=== PATIENT | male | born 1975 | race Caucasian/White ===

== ENCOUNTER 2020-10-16 17:06 | Emergency (ER) | payer SELFPAY ==
[2020-10-16 17:07] VITALS: BP 153/109; PULSE 55; RESP 22; TEMP 36.5; O2SAT 100; BMI 30.4
--- NOTE | 2020-10-16 17:19 | XRR_ITS ---
PROCEDURE INFORMATION: Exam: XR Chest Exam date and time: 10/16/2020 5:19 PM Age: 45 years old Clinical indication: Pain; Chest pressure; Additional info: Chest pain TECHNIQUE: Imaging protocol: XR of the chest. Views: 1 view. COMPARISON: CR Chest 1 [place] [id number] 02/12/2018 10:37 AM FINDINGS: Lungs: Low lung volumes. No consolidation. Normal pulmonary vasculature. Pleural spaces: Unremarkable. No pleural effusion. No pneumothorax. Heart/Mediastinum: Unremarkable. No cardiomegaly. Bones/joints: Unremarkable. XR/XR chest 1V portable [id number] IMPRESSION: No acute radiographic findings.
--- NOTE | 2020-10-16 17:22 | ECG_ITS ---
[facility] Test Date: 2020-10-16 Pat Name: Gideon Lion Department: Room: Gender: Male Director Quality Assurance: : 1975 Requested By: German Osborne Order Number: [id number] Dulce MD: Lupe Mueller M.D. Measurements Intervals [place] Rate: 62 P: 63 AL: 136 QRS: 3 QRSD: 76 T: 33 QT: 392 QTc: 399 Interpretive Statements SINUS RHYTHM Compared to ECG 02/12/2018 10:31:10 Atrial fibrillation no longer present T-wave abnormality no longer present Electronically Signed On 10-17-2020 21:06:37 CDT by Lupe Mueller M.D. [id number] f
--- NOTE | 2020-10-16 17:23 | W.ED.CHESTPA ---
Documented by User: German Osborne MD 10/16/20 17:58 HPI - Chest Pain General: Chief Complaint: Chest Pain Stated Complaint: CHEST PAIN Time Seen by Provider: 10/16/20 17:19 History of Present Illness: HPI narrative: This patient is a 45-year-old male who presents to the emergency department with complaint of chest pain and shortness of breath. Patient states has been going on for about 24 hours. Patient states several years ago he had a mild heart attack and was started on some medications. But did not get any stents. Patient is closely followed by Dr. Caballero cardiology. Patient states has been noncompliant with medications since he lost his insurance. Will do medical evaluation treat as needed complaint: chest heaviness Pertinent past history: coronary artery disease Timing of current episode: constant Prior episodes: Yes Onset: during rest Pain location: substernal Pain radiation: none Severity: moderate Associated symptoms: Reports dyspnea; Deny abdominal pain, fever(s), nausea, palpitations or vomiting Review of Systems General: Reports: 10 or more systems reviewed and unremarkable except in HPI and below Const: Denies: fever(s), chills, body aches or fatigue Eyes: Denies: change in vision or blurry vision ENMT: Denies: throat pain, hoarseness or mouth pain Card: Reports: chest pain; Denies: palpitations, irregular heart rhythm, edema, swelling of feet/ankles or lightheadedness Resp: Reports: dyspnea; Denies: productive cough, non-productive cough, wheezing or pain on inspiration GI: Denies: abdominal pain, nausea or vomiting : Denies: flank pain, dysuria, urinary frequency, urinary urgency or urinary hesitancy Musc: Denies: neck pain, back pain, extremity pain, extremity swelling, joint pain, joint swelling, joint redness, joint warmth or limited range of motion Skin/Breast: Denies: rash, pruritus, erythema or skin tenderness Neuro: Denies: headache(s), numbness in extremities or weakness in extremities Psych: Denies: anxiety or depression Physical Exam Const: COMMON NORMALS: no acute distress, average body habitus, patient oriented x3, no limitations, healthy appearing, alert and well nourished HENMT: COMMON NORMALS: normocephalic, atraumatic, hearing grossly normal bilaterally, external ears normal, EAC's normal, TM's normal bilaterally, Normal external nose present, Normal nasal mucous membranes and turbinates present, moist oral mucous membranes, oropharynx normal, dentition normal and gingiva normal HEAD & SCALP: normocephalic and atraumatic NOSE: Normal external nose present and Normal nasal mucous membranes and turbinates present EXTERNAL EAR: Yes external ears normal EXTERNAL AUDITORY CANAL: EAC's normal TYMPANIC MEMBRANE: TM's normal bilaterally Neck/C-Spine: COMMON NORMALS: full ROM, no lymphadenopathy, supple, no meningeal signs, no JVD, Thyroid normal and No carotid bruits THYROID: Thyroid normal Chest: COMMONS NORMALS: normal inspection of the chest, normal palpation of entire chest wall, normal inspection of the breasts and normal palpation of the breasts Breast/axilla inspection: Yes normal inspection of the breasts BREAST/AXILLA PALPATION: Yes normal palpation of the breasts Resp: COMMON NORMALS: normal respiratory effort, No retractions, No use of accessory muscles, clear to auscultation bilaterally and percussion normal AUSCULTATION: clear to auscultation bilaterally PERCUSSION: percussion normal Cardio: COMMON NORMALS: no JVD, regular rate, regular rhythm, S1 normal heart sound present, S2 normal heart sound present, No gallops present (Cardio), No clicks present (Cardio), No murmurs present (Cardio), No rub (Cardio) and Peripheral pulses 2+ throughout RATE: regular rate RHYTHM: regular rhythm HEART SOUNDS: S1 normal heart sound present and S2 normal heart sound present PERIPHERAL PULSES: Peripheral pulses 2+ throughout GI: COMMON NORMALS: Normal to inspection, nondistended, normoactive bowel sounds present, Soft to palpation, non-tender, No hepatosplenomegaly present, no masses and no bruits PALPATION: Yes Soft to palpation and Yes No hepatosplenomegaly present : COMMON NORMALS: Yes no CVA tenderness BLADDER/KIDNEY EXAM: Yes no CVA tenderness Back/Pelvis: COMMON NORMALS: no CVA tenderness, thoracic and lumbar spine normal to inspection, no thoracic nor lumbar tenderness, thoraco-lumbar ROM normal and straight leg raise negative bilaterally Extremity: COMMON NORMALS: normal to inspection, full ROM, capillary refill normal, no joint enlargement, no clubbing, cyanosis or edema, no calf tenderness and no pedal edema Neuro: COMMON NORMALS: patient oriented x3 SENSORIUM/ORIENTATION: Yes alert MENINGEAL SIGNS: Yes no meningeal signs Course Consultations: Consultation #1: Care transferred to Dr. Murguia for shift change Vital Signs: Vital signs: Vital Signs Temperature 97.7 F 10/16/20 17:07 Pulse Rate 74 10/16/20 20:47 Respiratory Rate 21 H 10/16/20 20:47 Blood Pressure 160/93 10/16/20 20:47 Pulse Oximetry 99 10/16/20 20:47 MDM - Chest Pain Lab Data: Labs: Lab Results 10/16/20 10/16/20 10/16/20 Range/Units 17:35 17:35 17:35 WBC 13.7 H (4.0-10.0) 10^3/ uL RBC 5.21 (4.1-5.3) 10^6/u L Hgb 15.5 (11.7-16.6) g/dL Hct 47.9 (42.0-52.0) % MCV 91.9 (80-94) fL MCH 29.8 (28.0-34.0) pg MCHC 32.4 (30.0-36.0) g/dL RDW 13.0 (12.1-15.1) % Plt Count 379 (130-400) 10^3/c mm MPV 9.3 (7.4-10.4) fL Neut % (Auto) 77.0 % Lymph % (Auto) 17.7 % Harrison % (Auto) 3.9 % Eos % (Auto) 0.8 % Baso % (Auto) 0.3 % Neut # (Auto) 10.56 H (1.8-7.7) 10^3/u L Lymph # (Auto) 2.4 (0.8-4.8) 10^3/u L Harrison # (Auto) 0.5 (0.2-0.9) 10^3/u L Eos # (Auto) 0.1 (0.0-0.8) 10^3/u L Baso # (Auto) 0.0 (0.0-0.1) 10^3/u L Nucleated RBC % (a uto) 0 % Nucleated RBCs # 0.0 /100WBC PT 13.20 (12.1-14.9) SECO NDS INR 0.97 (0.8-1.2) APTT 24.6 (23.9-36.7) SECO NDS D-Dimer <= 0.27 (0-0.59) ug/mIFE U Sodium 146 H (136-145) mmol/L Potassium 3.6 (3.5-5.1) mmol/L Chloride 108 H (98-107) mmol/L Carbon Dioxide 17 L (22-29) mmol/L Anion Gap 24.6 H (5-19) BUN 11 (6-20) mg/dL Creatinine 0.9 (0.7-1.2) mg/dL GFR Calculation 91.3 (90-130) mL/min Glucose 151 H (65-115) mg/dL Calculated Osmolal ity 304 H (285-295) mOsm/k g Calcium 9.1 (8.5-10.5) mg/dL Total Bilirubin 0.9 (0.15-1.2) mg/dL AST 15 (0-40) U/L ALT 16 (0-41) U/L Alkaline Phosphata se 63 (40-130) IU/L Troponin T Baselin e (0-15) ng/L Troponin T 120 Min [place] (0-15) ng/L Delta Troponin T (0-10) ABS# NT-Pro-B Natriuret Pep 74 (0-125) pg/mL Total Protein 6.9 (6.6-8.7) g/dL Albumin 4.4 (3.5-5.2) g/dL Globulin 2.5 (1.3-4.6) g/dL Urine Color (Yellow) Urine Appearance (CLEAR) Urine pH (5-7) Ur Specific Gravit y (1.005-1.030) Urine Protein (Negative) Urine Glucose (UA) (Normal) Urine Ketones (Negative) Urine Blood (Negative) Urine Nitrate (Negative) Urine Bilirubin (Negative) Urine Urobilinogen (Negative) mg/dL Ur Leukocyte [place] ase (Negative) Urine RBC (0-2) /hpf Urine WBC (0-5) /hpf Ur Squamous Epith Cells (0-5) /hpf Amorphous Sediment Urine Bacteria (NONE) /hpf Hyaline Casts /lpf Urine Mucus /hpf Urine Opiates Scre en (Negative) ng/mL Ur Barbiturates Sc reen (Negative) ng/mL Ur Phencyclidine S crn (Negative) ng/mL Ur Amphetamines Sc reen (Negative) ng/mL U Benzodiazepines Scrn (Negative) ng/mL Urine Cocaine Scre en (Negative) ng/mL U Marijuana (THC) Screen (Negative) ng/mL 10/16/20 10/16/20 10/16/20 Range/Units 17:35 18:19 18:19 WBC (4.0-10.0) 10^3/ uL RBC (4.1-5.3) 10^6/u L Hgb (11.7-16.6) g/dL Hct (42.0-52.0) % MCV (80-94) fL MCH (28.0-34.0) pg MCHC (30.0-36.0) g/dL RDW (12.1-15.1) % Plt Count (130-400) 10^3/c mm MPV (7.4-10.4) fL Neut % (Auto) % Lymph % (Auto) % Harrison % (Auto) % Eos % (Auto) % Baso % (Auto) % Neut # (Auto) (1.8-7.7) 10^3/u L Lymph # (Auto) (0.8-4.8) 10^3/u L Harrison # (Auto) (0.2-0.9) 10^3/u L Eos # (Auto) (0.0-0.8) 10^3/u L Baso # (Auto) (0.0-0.1) 10^3/u L Nucleated RBC % (a uto) % Nucleated RBCs # /100WBC PT (12.1-14.9) SECO NDS INR (0.8-1.2) APTT (23.9-36.7) SECO NDS D-Dimer (0-0.59) ug/mIFE U Sodium (136-145) mmol/L Potassium (3.5-5.1) mmol/L Chloride (98-107) mmol/L Carbon Dioxide (22-29) mmol/L Anion Gap (5-19) BUN (6-20) mg/dL Creatinine (0.7-1.2) mg/dL GFR Calculation (90-130) mL/min Glucose (65-115) mg/dL Calculated Osmolal ity (285-295) mOsm/k g Calcium (8.5-10.5) mg/dL Total Bilirubin (0.15-1.2) mg/dL AST (0-40) U/L ALT (0-41) U/L Alkaline Phosphata se (40-130) IU/L Troponin T Baselin e 10 (0-15) ng/L Troponin T 120 Min [place] (0-15) ng/L Delta Troponin T (0-10) ABS# NT-Pro-B Natriuret Pep (0-125) pg/mL Total Protein (6.6-8.7) g/dL Albumin (3.5-5.2) g/dL Globulin (1.3-4.6) g/dL Urine Color Yellow (Yellow) Urine Appearance Sl hazy (CLEAR) Urine pH 7 (5-7) Ur Specific Gravit y 1.010 (1.005-1.030) Urine Protein Neg (Negative) Urine Glucose (UA) Norm (Normal) Urine Ketones 1+ H (Negative) Urine Blood 3+ H (Negative) Urine Nitrate Negative (Negative) Urine Bilirubin Neg (Negative) Urine Urobilinogen Norm (Negative) mg/dL Ur Leukocyte [place]urel ase Negative (Negative) Urine RBC 15-25 H (0-2) /hpf Urine WBC None (0-5) /hpf Ur Squamous Epith Cells Rare (0-5) /hpf Amorphous Sediment Not Reportable Urine Bacteria Trace (NONE) /hpf Hyaline Casts 5-10 H /lpf Urine Mucus 1+ /hpf Urine Opiates Scre en Negative (Negative) ng/mL Ur Barbiturates Sc reen Negative (Negative) ng/mL Ur Phencyclidine S crn Negative (Negative) ng/mL Ur Amphetamines Sc reen Positive H (Negative) ng/mL U Benzodiazepines Scrn Negative (Negative) ng/mL Urine Cocaine Scre en Negative (Negative) ng/mL U Marijuana (THC) Screen Positive H (Negative) ng/mL 10/16/20 Range/Units 20:03 WBC (4.0-10.0) 10^3/ uL RBC (4.1-5.3) 10^6/u L Hgb (11.7-16.6) g/dL Hct (42.0-52.0) % MCV (80-94) fL MCH (28.0-34.0) pg MCHC (30.0-36.0) g/dL RDW (12.1-15.1) % Plt Count (130-400) 10^3/c mm MPV (7.4-10.4) fL Neut % (Auto) % Lymph % (Auto) % Harrison % (Auto) % Eos % (Auto) % Baso % (Auto) % Neut # (Auto) (1.8-7.7) 10^3/u L Lymph # (Auto) (0.8-4.8) 10^3/u L Harrison # (Auto) (0.2-0.9) 10^3/u L Eos # (Auto) (0.0-0.8) 10^3/u L Baso # (Auto) (0.0-0.1) 10^3/u L Nucleated RBC % (a uto) % Nucleated RBCs # /100WBC PT (12.1-14.9) SECO NDS INR (0.8-1.2) APTT (23.9-36.7) SECO NDS D-Dimer (0-0.59) ug/mIFE U Sodium (136-145) mmol/L Potassium (3.5-5.1) mmol/L Chloride (98-107) mmol/L Carbon Dioxide (22-29) mmol/L Anion Gap (5-19) BUN (6-20) mg/dL Creatinine (0.7-1.2) mg/dL GFR Calculation (90-130) mL/min Glucose (65-115) mg/dL Calculated Osmolal ity (285-295) mOsm/k g Calcium (8.5-10.5) mg/dL Total Bilirubin (0.15-1.2) mg/dL AST (0-40) U/L ALT (0-41) U/L Alkaline Phosphata se (40-130) IU/L Troponin T Baselin e (0-15) ng/L Troponin T 120 Min [place] 37.28 H (0-15) ng/L Delta Troponin T 27.28 H* (0-10) ABS# NT-Pro-B Natriuret Pep (0-125) pg/mL Total Protein (6.6-8.7) g/dL Albumin (3.5-5.2) g/dL Globulin (1.3-4.6) g/dL Urine Color (Yellow) Urine Appearance (CLEAR) Urine pH (5-7) Ur Specific Gravit y (1.005-1.030) Urine Protein (Negative) Urine Glucose (UA) (Normal) Urine Ketones (Negative) Urine Blood (Negative) Urine Nitrate (Negative) Urine Bilirubin (Negative) Urine Urobilinogen (Negative) mg/dL Ur Leukocyte [place] ase (Negative) Urine RBC (0-2) /hpf Urine WBC (0-5) /hpf Ur Squamous Epith Cells (0-5) /hpf Amorphous Sediment Urine Bacteria (NONE) /hpf Hyaline Casts /lpf Urine Mucus /hpf Urine Opiates Scre en (Negative) ng/mL Ur Barbiturates Sc reen (Negative) ng/mL Ur Phencyclidine S crn (Negative) ng/mL Ur Amphetamines Sc reen (Negative) ng/mL U Benzodiazepines Scrn (Negative) ng/mL Urine Cocaine Scre en (Negative) ng/mL U Marijuana (THC) Screen (Negative) ng/mL EKG Data^: EKG 1: Attestation: I personally reviewed and interpreted this EKG as follows: EKG interpretation date: 10/16/20 EKG interpretation time: 17:15 Prior EKG tracings: not available for review Interpretation: Sinus rhythm heart rate 62 normal EKG Discharge Plan Discharge Patient Disposition: Left Against Medical Advice Clinical Impression: Chest pain Qualifiers: Chest pain type: unspecified Qualified Code(s): R07.9 - Chest pain, unspecified Coding Level of Care Code ED Microfiche Duplicator for Chg Fwd Exam Comprehensive Documented by User: Marc Murguia DO 10/17/20 06:35 HPI - Chest Pain General: Chief Complaint: Chest Pain Stated Complaint: CHEST PAIN Time Seen by Provider: 10/16/20 17:19 Course Vital Signs: Vital signs: Vital Signs Temperature 97.7 F 10/16/20 17:07 Pulse Rate 74 10/16/20 20:47 Respiratory Rate 21 H 10/16/20 20:47 Blood Pressure 160/93 10/16/20 20:47 Pulse Oximetry 99 10/16/20 20:47 MDM - Chest Pain MDM Narrative: Medical decision making narrative: 45-year-old male evidently with a history of coronary disease but without procedural intervention, presents with chest discomfort. He was checked out to me by Dr. Osborne at shift change. This patient has an EKG that did not show any acute ST changes. His first troponin was essentially negative, but a second troponin cecilia significantly with a significant delta. His bicarbonate level is 17. His urine drug screen is positive for amphetamines. His chest x-ray was negative. I suspect a delta troponin could be related to amphetamine use, but still, given the patient's history, observation was warranted. However, the patient eloped from the emergency department prior to completion of his care. The patient evidently had an IV in his arm at the time of elopement. Because of this, security called at [facility] deputies who later caught up with the patient. They encouraged the patient to come back, given his elevation in troponin, and possible non-STEMI status. The patient said that he would think about coming back. Lab Data: Labs: Lab Results 10/16/20 10/16/20 10/16/20 Range/Units 17:35 17:35 17:35 WBC 13.7 H (4.0-10.0) 10^3/ uL RBC 5.21 (4.1-5.3) 10^6/u L Hgb 15.5 (11.7-16.6) g/dL Hct 47.9 (42.0-52.0) % MCV 91.9 (80-94) fL MCH 29.8 (28.0-34.0) pg MCHC 32.4 (30.0-36.0) g/dL RDW 13.0 (12.1-15.1) % Plt Count 379 (130-400) 10^3/c mm MPV 9.3 (7.4-10.4) fL Neut % (Auto) 77.0 % Lymph % (Auto) 17.7 % [place] % (Auto) 3.9 % Eos % (Auto) 0.8 % Baso % (Auto) 0.3 % Neut # (Auto) 10.56 H (1.8-7.7) 10^3/u L Lymph # (Auto) 2.4 (0.8-4.8) 10^3/u L Harrison # (Auto) 0.5 (0.2-0.9) 10^3/u L Eos # (Auto) 0.1 (0.0-0.8) 10^3/u L Baso # (Auto) 0.0 (0.0-0.1) 10^3/u L Nucleated RBC % (a uto) 0 % Nucleated RBCs # 0.0 /100WBC PT 13.20 (12.1-14.9) SECO NDS INR 0.97 (0.8-1.2) APTT 24.6 (23.9-36.7) SECO NDS D-Dimer <= 0.27 (0-0.59) ug/mIFE U Sodium 146 H (136-145) mmol/L Potassium 3.6 (3.5-5.1) mmol/L Chloride 108 H (98-107) mmol/L Carbon Dioxide 17 L (22-29) mmol/L Anion Gap 24.6 H (5-19) BUN 11 (6-20) mg/dL Creatinine 0.9 (0.7-1.2) mg/dL GFR Calculation 91.3 (90-130) mL/min Glucose 151 H (65-115) mg/dL Calculated Osmolal ity 304 H (285-295) mOsm/k g Calcium 9.1 (8.5-10.5) mg/dL Total Bilirubin 0.9 (0.15-1.2) mg/dL AST 15 (0-40) U/L ALT 16 (0-41) U/L Alkaline Phosphata se 63 (40-130) IU/L Troponin T Baselin e (0-15) ng/L Troponin T 120 Min [place] (0-15) ng/L Delta Troponin T (0-10) ABS# NT-Pro-B Natriuret Pep 74 (0-125) pg/mL Total Protein 6.9 (6.6-8.7) g/dL Albumin 4.4 (3.5-5.2) g/dL Globulin 2.5 (1.3-4.6) g/dL Urine Color (Yellow) Urine Appearance (CLEAR) Urine pH (5-7) Ur Specific Gravit y (1.005-1.030) Urine Protein (Negative) Urine Glucose (UA) (Normal) Urine Ketones (Negative) Urine Blood (Negative) Urine Nitrate (Negative) Urine Bilirubin (Negative) Urine Urobilinogen (Negative) mg/dL Ur Leukocyte [place]urel ase (Negative) Urine RBC (0-2) /hpf Urine WBC (0-5) /hpf Ur Squamous Epith Cells (0-5) /hpf Amorphous Sediment Urine Bacteria (NONE) /hpf Hyaline Casts /lpf Urine Mucus /hpf Urine Opiates Scre en (Negative) ng/mL Ur Barbiturates Sc reen (Negative) ng/mL Ur Phencyclidine S crn (Negative) ng/mL Ur Amphetamines Sc reen (Negative) ng/mL U Benzodiazepines Scrn (Negative) ng/mL Urine Cocaine Scre en (Negative) ng/mL U Marijuana (THC) Screen (Negative) ng/mL 10/16/20 10/16/20 10/16/20 Range/Units 17:35 18:19 18:19 WBC (4.0-10.0) 10^3/ uL RBC (4.1-5.3) 10^6/u L Hgb (11.7-16.6) g/dL Hct (42.0-52.0) % MCV (80-94) fL MCH (28.0-34.0) pg MCHC (30.0-36.0) g/dL RDW (12.1-15.1) % Plt Count (130-400) 10^3/c mm MPV (7.4-10.4) fL Neut % (Auto) % Lymph % (Auto) % [place] % (Auto) % Eos % (Auto) % Baso % (Auto) % Neut # (Auto) (1.8-7.7) 10^3/u L Lymph # (Auto) (0.8-4.8) 10^3/u L [place] # (Auto) (0.2-0.9) 10^3/u L Eos # (Auto) (0.0-0.8) 10^3/u L Baso # (Auto) (0.0-0.1) 10^3/u L Nucleated RBC % (a uto) % Nucleated RBCs # /100WBC PT (12.1-14.9) SECO NDS INR (0.8-1.2) APTT (23.9-36.7) SECO NDS D-Dimer (0-0.59) ug/mIFE U Sodium (136-145) mmol/L Potassium (3.5-5.1) mmol/L Chloride (98-107) mmol/L Carbon Dioxide (22-29) mmol/L Anion Gap (5-19) BUN (6-20) mg/dL Creatinine (0.7-1.2) mg/dL GFR Calculation (90-130) mL/min Glucose (65-115) mg/dL Calculated Osmolal ity (285-295) mOsm/k g Calcium (8.5-10.5) mg/dL Total Bilirubin (0.15-1.2) mg/dL AST (0-40) U/L ALT (0-41) U/L Alkaline Phosphata se (40-130) IU/L Troponin T Baselin e 10 (0-15) ng/L Troponin T 120 Min [place] (0-15) ng/L Delta Troponin T (0-10) ABS# NT-Pro-B Natriuret Pep (0-125) pg/mL Total Protein (6.6-8.7) g/dL Albumin (3.5-5.2) g/dL Globulin (1.3-4.6) g/dL Urine Color Yellow (Yellow) Urine Appearance Sl hazy (CLEAR) Urine pH 7 (5-7) Ur Specific Gravit y 1.010 (1.005-1.030) Urine Protein Neg (Negative) Urine Glucose (UA) Norm (Normal) Urine Ketones 1+ H (Negative) Urine Blood 3+ H (Negative) Urine Nitrate Negative (Negative) Urine Bilirubin Neg (Negative) Urine Urobilinogen Norm (Negative) mg/dL Ur Leukocyte [place] a[place] Negative (Negative) Urine RBC 15-25 H (0-2) /hpf Urine WBC None (0-5) /hpf Ur Squamous Epith Cells Rare (0-5) /hpf Amorphous Sediment Not Reportable Urine Bacteria Trace (NONE) /hpf Hyaline Casts 5-10 H /lpf Urine Mucus 1+ /hpf Urine Opiates Scre en Negative (Negative) ng/mL Ur Barbiturates Sc reen Negative (Negative) ng/mL Ur Phencyclidine S crn Negative (Negative) ng/mL Ur Amphetamines Sc reen Positive H (Negative) ng/mL U Benzodiazepines Scrn Negative (Negative) ng/mL Urine Cocaine Scre en Negative (Negative) ng/mL U Marijuana (THC) Screen Positive H (Negative) ng/mL 10/16/20 Range/Units 20:03 WBC (4.0-10.0) 10^3/ uL RBC (4.1-5.3) 10^6/u L Hgb (11.7-16.6) g/dL Hct (42.0-52.0) % MCV (80-94) fL MCH (28.0-34.0) pg MCHC (30.0-36.0) g/dL RDW (12.1-15.1) % Plt Count (130-400) 10^3/c mm MPV (7.4-10.4) fL Neut % (Auto) % Lymph % (Auto) % Harrison % (Auto) % Eos % (Auto) % Baso % (Auto) % Neut # (Auto) (1.8-7.7) 10^3/u L Lymph # (Auto) (0.8-4.8) 10^3/u L Harrison # (Auto) (0.2-0.9) 10^3/u L Eos # (Auto) (0.0-0.8) 10^3/u L Baso # (Auto) (0.0-0.1) 10^3/u L Nucleated RBC % (a uto) % Nucleated RBCs # /100WBC PT (12.1-14.9) SECO NDS INR (0.8-1.2) APTT (23.9-36.7) SECO NDS D-Dimer (0-0.59) ug/mIFE U Sodium (136-145) mmol/L Potassium (3.5-5.1) mmol/L Chloride (98-107) mmol/L Carbon Dioxide (22-29) mmol/L Anion Gap (5-19) BUN (6-20) mg/dL Creatinine (0.7-1.2) mg/dL GFR Calculation (90-130) mL/min Glucose (65-115) mg/dL Calculated Osmolal ity (285-295) mOsm/k g Calcium (8.5-10.5) mg/dL Total Bilirubin (0.15-1.2) mg/dL AST (0-40) U/L ALT (0-41) U/L Alkaline Phosphata se (40-130) IU/L Troponin T Baselin e (0-15) ng/L Troponin T 120 Min [place] 37.28 H (0-15) ng/L Delta Troponin T 27.28 H* (0-10) ABS# NT-Pro-B Natriuret Pep (0-125) pg/mL Total Protein (6.6-8.7) g/dL Albumin (3.5-5.2) g/dL Globulin (1.3-4.6) g/dL Urine Color (Yellow) Urine Appearance (CLEAR) Urine pH (5-7) Ur Specific Gravit y (1.005-1.030) Urine Protein (Negative) Urine Glucose (UA) (Normal) Urine Ketones (Negative) Urine Blood (Negative) Urine Nitrate (Negative) Urine Bilirubin (Negative) Urine Urobilinogen (Negative) mg/dL Ur Leukocyte [place]urel ase (Negative) Urine RBC (0-2) /hpf Urine WBC (0-5) /hpf Ur Squamous Epith Cells (0-5) /hpf Amorphous Sediment Urine Bacteria (NONE) /hpf Hyaline Casts /lpf Urine Mucus /hpf Urine Opiates Scre en (Negative) ng/mL Ur Barbiturates Sc reen (Negative) ng/mL Ur Phencyclidine S crn (Negative) ng/mL Ur Amphetamines Sc reen (Negative) ng/mL U Benzodiazepines Scrn (Negative) ng/mL Urine Cocaine Scre en (Negative) ng/mL U Marijuana (THC) Screen (Negative) ng/mL Discharge Plan Discharge Patient Disposition: Left Against Medical Advice Clinical Impression: Chest pain Qualifiers: Chest pain type: unspecified Qualified Code(s): R07.9 - Chest pain, unspecified Coding Level of Care Code ED Microfiche Duplicator for [facility] Fwd Exam Comprehensive
[2020-10-16 17:26] VITALS: BP 112/92; PULSE 66; RESP 18; O2SAT 98
[2020-10-16] MEDS: nitroglycerin 0.4 mg sublingual Tablet SUBLINGUAL ×2 (17:28→17:34)
--- NOTE | 2020-10-16 17:29 | PC.NURSE ---
1729 X1 NITRO ADMINISTERED FOR CHEST PAIN OF 12/30 - BP 153/109 PULSE 62 02 98% ON RA --1734 BP 129/92 PULSE 98 0298% ROOM AIR - PT RATES CHEST PAIN OF 10/29 - SLIGHT DECREASE IN PAIN - 2ND NITRO ADMINISTERED - 1739 BP 109/85 PULSE 96 02 97% - WILL NOTIFY DOCTOR OF CONTINUED CHEST PAIN RATING AT 10/29
[2020-10-16 17:41] LABS: Basophils % 0.3 %; Eosinophils # 0.1 10^3/uL (0.0-0.8); Eosinophils % 0.8 %; Hematocrit 47.9 % (42.0-52.0); Hemoglobin 15.5 g/dL (11.7-16.6); Lymphocytes # 2.4 10^3/uL (0.8-4.8); Lymphocytes % 17.7 %; Mean Corpuscular HGB Conc 32.4 g/dL (30.0-36.0); Mean Corpuscular Hemoglobin 29.8 pg (28.0-34.0); Mean Corpuscular Volume 91.9 fL (80-94); Mean Platelet Volume 9.3 fL (7.4-10.4); Monocytes # 0.5 10^3/uL (0.2-0.9); Monocytes % 3.9 %; Neutrophils # 10.56 10^3/uL (1.8-7.7); Nucleated Red Blood Cells % 0 %; Platelet Count 379 10^3/cmm (130-400); Red Blood Count 5.21 10^6/uL (4.1-5.3); White Blood Count 13.7 10^3/uL (4.0-10.0)
[2020-10-16 17:53] LABS: INR 0.97 (0.8-1.2)
[2020-10-16 17:54] LABS: Partial Thromboplastin Time 24.6 SECONDS (23.9-36.7)
[2020-10-16 17:56] LABS: D Dimer <= 0.27 ug/mIFEU (0-0.59)
[2020-10-16 18:01] LABS: Troponin(5th) Baseline 10 ng/L (0-15)
[2020-10-16 18:10] LABS: Alanine Aminotransferase 16 U/L (0-41); Albumin Level 4.4 g/dL (3.5-5.2); Alkaline Phosphatase 63 IU/L (40-130); Anion Gap 24.6 (5-19); Aspartate Amino Transferase 15 U/L (0-40); Blood Urea Nitrogen 11 mg/dL (6-20); Calcium 9.1 mg/dL (8.5-10.5); Carbon Dioxide 17 mmol/L (22-29); Chloride 108 mmol/L (98-107); Globulin 2.5 g/dL (1.3-4.6); Glomerular Filtration Rate 91.3 mL/min (90-130); Glucose 151 mg/dL (65-115); NT Pro B Type Natriuretic Pept 74 pg/mL (0-125); Osmolality Calculated 304 mOsm/kg (285-295); Potassium 3.6 mmol/L (3.5-5.1); Sodium 146 mmol/L (136-145); Total Bilirubin 0.9 mg/dL (0.15-1.2); Total Protein 6.9 g/dL (6.6-8.7)
[2020-10-16 18:26] VITALS: BP 115/70; PULSE 62; RESP 18; O2SAT 96
[2020-10-16 18:36] VITALS: RESP 18
[2020-10-16] MEDS: ondansetron 2 mg/ML SDV 2 mL 4 MG IVP (18:36)
[2020-10-16] MEDS: morphine 4 mg/mL SDV 1 mL IVP ×2 (18:36→20:46)
[2020-10-16 18:38] LABS: Add Urine Microscopic? YES; Bilirubin Urine Neg (Negative); Blood Urine 3+ (Negative); Glucose Urine UA Norm (Normal); Ketones Urine 1+ (Negative); Leukocyte Esterase Urine Negative (Negative); Nitrate Urine Negative (Negative); Protein Urine Neg (Negative); Urine Appearance SL Hazy (CLEAR); Urine Color Yellow (Yellow); Urobilinogen Urine Norm (Negative); pH Urine 7 (5-7)
[2020-10-16 18:40] LABS: RBC Urine 15-25 /hpf (0-2)
[2020-10-16 18:41] LABS: Add Urine Culture? Yes; Bacteria Urine TRACE /hpf; Mucus Urine 1+ /hpf; Squamous Epithelial Cell Urine RARE /hpf (0-5)
[2020-10-16 18:44] LABS: Amphetamines Screen Urine Positive (Negative); Barbiturates Screen Urine Negative (Negative); Benzodiazepines Screen Urine Negative (Negative); Cocaine Screen Urine Negative (Negative); Opiate Screen Urine Negative (Negative); PCP Screen Urine Negative (Negative); THC Screen Urine Positive (Negative)
--- NOTE | 2020-10-16 19:22 | ECG_ITS ---
[facility] Test Date: 2020-10-16 Pat Name: Gideon Lion Department: Room: Gender: Male [employer]: : 1975 Requested By: German Osborne Order Number: [id number] Dulce MD: Lupe Mueller M.D. Measurements Intervals [place] Rate: 59 P: 21 MA: 146 QRS: -5 QRSD: 88 T: 31 QT: 403 QTc: 400 Interpretive Statements SINUS BRADYCARDIA Compared to ECG 10/16/2020 17:15:07 Sinus rhythm no longer present Electronically Signed On 10-19-2020 0:33:11 CDT by Lupe Mueller M.D. [email or web address] hospitalKSEsumma [id number]
[2020-10-16 19:57] VITALS: BP 126/56; PULSE 53; O2SAT 99
[2020-10-16 20:30] LABS: Troponin 5 2HR 37.28 ng/L (0-15)
[2020-10-16 20:38] LABS: Troponin 5 2HR Delta 27.28 ABS# (0-10)
[2020-10-16] MEDS: nitroglycerin 1 gm/inch oint Pkt 1 INCH TOPICAL (20:46)
[2020-10-16 20:47] VITALS: BP 160/93; PULSE 74; RESP 21; O2SAT 99
--- NOTE | 2020-10-16 21:31 | PC.NURSE ---
This nurse noticed upon walking back from [facility] to discharge another patient that patient and patient family member in ED room 14 were no longer in room. Security notified. residence life coordinator called all phone numbers available for patient, all #'s were disconnected. Security notified [facility] due to patient eloping from ER with IV still in place.
--- NOTE | 2020-10-16 21:43 | PC.NURSE ---
This nurse attempted to call all phone numbers available for patient in chart. All numbers disconnected. Head of security and [facility] department notified
--- NOTE | 2020-10-16 21:50 | PC.NURSE ---
security called law enforcement and were told to notify patient to come back into ED
== END 2020-10-16 21:59 | disposition left against medical advice (07) ==
PROVIDERS: Emergency Medicine; Emergency Provider Emergency Medicine
DX: R07.9 Chest pain, unspecified (principal); Z53.21 Procedure and treatment not carried out due to patient leaving prior to being seen by health care provider
CPT/HCPCS: 36415; 71045; 80053; 80306; 81001; 83880; 84484; 85025; 85378; 85610; 85730; 87086; 93005; 96374; 96375; 96376; 99284; 99291; J2270; J2405

== ENCOUNTER 2021-05-15 12:12 | Emergency (ER) | payer MEDICAID, SELFPAY ==
[2021-05-15 12:15] VITALS: BP 127/83; PULSE 121; RESP 24; TEMP 36.5; O2SAT 97; BMI 30.5
--- NOTE | 2021-05-15 12:17 | XR_ITS ---
WS: [id number] KNEE LEFT TECHNIQUE: 3 views of the left knee CLINICAL INFORMATION: chainsaw injury COMPARISON: None. FINDINGS: Normal anatomic alignment. No acute fractures. Normal patella. Small linear foreign body or calcification in the subcutaneous soft tissues anterior to the patella i s unchanged since 2010 XR/XR knee LT 3V* [id number] IMPRESSION: No acute left knee findings Kellgren-Wilbert Classification: grade 0 (none): definite absence of x-ray jose nges of osteoarthritis
[2021-05-15 12:21] VITALS: O2SAT 96
--- NOTE | 2021-05-15 12:23 | W.ED.TRAUMA ---
HPI - Trauma General: Chief Complaint: Trauma Stated Complaint: CUT LEG WITH CHAINSAW Time Seen by Provider: 05/15/21 12:17 History of Present Illness: HPI narrative: Patient presents with a laceration to the left kneecap area. Patient states limb kickback knocked change salt into his pants leg. Patient had a vasovagal reaction soon after the laceration occurred. Patient vomited and woke up in car that his dad put him in. Patient says he feels better now. Patient said left knee really hurts. Tetanus is up-to-date and was done 2 years ago complaint: injury Onset (ago): minute(s) Loss of Consciousness: yes (Vasovagal type reaction, last out after centimeters laceration) Location - Extremities: Left: knee Severity: mild Context: other (Chainsaw chain cut on) Associated symptoms: Reports no associated symptoms; Denies abdominal pain, chest pain, chills, fever(s), headache(s), nausea or vomiting Review of Systems Const: Denies: fever(s), chills or body aches Eyes: Denies: change in vision or blurry vision ENMT: Denies: throat pain or nasal congestion Card: Denies: chest pain or dyspnea on exertion Resp: Denies: dyspnea, productive cough or non-productive cough GI: Denies: abdominal pain, nausea or vomiting : Denies: difficulty urinating Musc: Reports: joint pain (Left knee); Denies: extremity pain Skin/Breast: Reports: other (Laceration left kneecap area from a chainsaw); Denies: rash Neuro: Denies: headache(s) Psych: Denies: anxiety or depression Jitendra/Lymph: Denies: easy bruising Physical Exam Const: COMMON NORMALS: no acute distress, average body habitus and patient oriented x3 HENMT: COMMON NORMALS: normocephalic HEAD & SCALP: normal to inspection and normocephalic FACE & SINUS: normal facial exam Eye: COMMON NORMALS: conjunctivae normal GENERAL EYE: appearance normal, both eyes and all related structures CONJUNCTIVA: Yes conjunctivae normal Neck/C-Spine: COMMON NORMALS: no JVD Chest: COMMONS NORMALS: normal inspection of the chest Resp: COMMON NORMALS: normal respiratory effort and clear to auscultation bilaterally AUSCULTATION: clear to auscultation bilaterally Cardio: COMMON NORMALS: no JVD, regular rate and regular rhythm RATE: regular rate RHYTHM: regular rhythm GI: COMMON NORMALS: Normal to inspection, nondistended, normoactive bowel sounds present Extremity: COMMON NORMALS: normal to inspection and full ROM Neuro: COMMON NORMALS: patient oriented x3 Skin: OTHER: 6 cm laceration without active bleeding but is oozing some to the left knee. Unable to determine whether bone is involved presently at this time. Procedures Laceration Laceration 1: Site: lower extremity Side (If applicable): left Size (cm): 8 Description: linear, irregular and clean Depth: simple, single layer Local Anesthetic: lidocaine 1% Amount of anesthesia used (mL): 5 Pre-repair: wound explored, irrigated extensively and deep structures intact Skin layer closed with: nylon Size (cm): 4-0 Number of sutures: 13 Technique: simple, interrupted Course Vital Signs: Vital signs: Vital Signs Temperature 97.7 F 05/15/21 12:15 Pulse Rate 121 H 05/15/21 12:15 Respiratory Rate 17 05/15/21 13:20 Blood Pressure 127/83 05/15/21 12:15 Pulse Oximetry 97 05/15/21 13:20 MDM - Trauma MDM Narrative: Medical decision making narrative: Patient sustained laceration to his left knee from a chainsaw accident earlier today. Patient had a vasovagal reaction after seen in his laceration. This occurred in the car. Patient presents fine but in pain and nervous from his laceration. Patient appeared stable. Laceration repaired without any difficulty. X-ray studies were negative. Patient was given antibiotic. Patient tolerated procedure well. Vital signs stable on discharge. Discharge Plan Discharge Patient Disposition: Home Clinical Impression: Laceration Condition: Stable Prescriptions: New cephalexin 500 mg capsule 500 mg PO Q8H 7 Days Qty: 21 RF: 0 Discharge Orders: Discharge ED (Routine); Ordered 05/15/21 Ordered By: Shahzad Albrecht Discharge Diet: Usual diet Discharge Activity: Resume usual activity Patient Instructions: Care For Your Stitches (ED), Laceration (ED) Activity Restrictions/Additional Instructions: Follow-up with medical provider as directed. Take medications as prescribed. Return to the ER or your medical provider if condition worsens. Please read and understand discharge instructions. If any questions ask please. Have sutures removed in 7 days. Apply Vaseline or petroleum jelly to wound to keep it moist. Keep dressing on wound. Change dressing daily. Coding Level of Care Code ED Health Promoter for Chg Fwd Exam Comprehensive
[2021-05-15] MEDS: morphine 4 mg/mL SDV 1 mL IVP (12:25)
[2021-05-15] MEDS: sodium chloride 0.9% 1,000 ML 100 ML IV (12:25)
[2021-05-15] MEDS: cefTRIAXone 1,000 MG in sodium chloride 0.9% (plus) 50 ML 100 MG IV (12:25)
[2021-05-15] MEDS: ondansetron 2 mg/ML SDV 2 mL 4 MG IVP (12:25)
--- NOTE | 2021-05-15 12:57 | PC.NURSE ---
room set up for sutures by this nurse by placing lidocaine at bedside, suture cart being moved in room, ed provider notified.
[2021-05-15 13:20] VITALS: RESP 17; O2SAT 97
[2021-05-15] MEDS: HYDROmorphone 1 mg/mL INJ 1 mL 0.5 MG IVP (13:20)
--- NOTE | 2021-05-22 13:00 | PC.NURSE ---
patient returned 05/22/21 at 1245 for suture removal. patients wound intact with mild redness noted around isite. no discharge/swelling noted upon suture removal. 12 sutures removed from Left knee in triage with no complications. patient in no obivous distress. patient ambulatory to front lobby
== END 2021-05-15 13:55 | disposition home or self-care (01) ==
PROVIDERS: Emergency Provider Nurse Practitioner Family
DX: S81.012A Laceration without foreign body, left knee, initial encounter (principal); W29.3XXA Contact with powered garden and outdoor hand tools and machinery, initial encounter
CPT/HCPCS: 12004; 73562; 96365; 96375; 99284; J0696; J1170; J2270; J2405; J7030

== ENCOUNTER 2021-07-14 17:23 | Emergency (ER) | payer MEDICAID, SELFPAY ==
[2021-07-14] VITALS (13 sets, daily range): BP systolic 130–178; BP diastolic 79–120; PULSE 58–88; RESP 16–20; TEMP 36.6; O2SAT 93–100; BMI 29.7
--- NOTE | 2021-07-14 17:39 | XRR_ITS ---
PROCEDURE INFORMATION: Exam: XR Chest Exam date and time: 07/14/2021 5:50 PM Age: 45 years old Clinical indication: Pain; Angina pectoris; Additional info: Chest pain, shaking, heart palpitations, excessive perspiration TECHNIQUE: Imaging protocol: XR of the chest. Views: 1 view. COMPARISON: CR (CHEST, ) 10/16/2020 5:42 PM FINDINGS: Lungs: The lungs are clear. Pleural spaces: Unremarkable. No pleural effusion. No pneumothorax. Heart/Mediastinum: Unremarkable. No cardiomegaly. Bones/joints: Unremarkable. XR/XR chest 1V portable [id number] IMPRESSION: No acute cardiopulmonary abnormality.
--- NOTE | 2021-07-14 17:39 | ECG_ITS ---
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 Measurements Intervals [place] Rate: 81 P: 48 IN: 140 QRS: -15 QRSD: 92 T: 49 QT: 335 QTc: 390 Interpretive Statements SINUS RHYTHM WITH SINUS ARRHYTHMIA POSSIBLE RIGHT VENTRICULAR CONDUCTION DELAY [RSR (QR) IN V1/V2] Compared to ECG 10/16/2020 19:15:35 Sinus bradycardia no longer present Electronically Signed On 07-15-2021 9:05:49 CDT by Otoniel Rivera M.D. [email or web address] [email or web address]/store/[id number] f
--- NOTE | 2021-07-14 17:50 | W.ED.CHESTPA ---
Documented by User: Rod Campo 07/14/21 17:58 HPI - Chest Pain General: Chief Complaint: Chest Pain Stated Complaint: Hx of heart issues, V/Hives Chest Pains Time Seen by Provider: 07/14/21 17:29 History of Present Illness: 45-year-old male presents emergency department chief complaint of having chest pain muscle aches body aches rigors ongoing progressive getting worse over the last couple of days. Patient does report having a known history of cardiac issues which show that young age of 18 he did have a heart attack however the vessel was not stented and there is a small distal vessel he reports that his physician/allergy/immunology was Dr. Caballero. He reports last time he is seen Dr. Smith in 2019. Patient does report with the onset of the symptoms of rigors and pain he developed left-sided chest pain with no radiation. Patient reports no recent sickness nor illness reports no fevers at home reports no recent medication changes reporting no other associated symptoms. Associated symptoms: Reports abdominal pain, nausea and palpitations; Deny dyspnea, fever(s) or vomiting Review of Systems General: Reports: 10 or more systems reviewed and unremarkable except in HPI and below Const: Denies: fever(s), chills, fatigue or malaise Eyes: Denies: change in vision or blurry vision Card: Reports: chest pain and palpitations Resp: Denies: dyspnea or productive cough GI: Reports: abdominal pain and nausea; Denies: vomiting : Denies: flank pain Musc: Denies: extremity pain or extremity swelling Skin/Breast: Denies: rash or pruritus Neuro: Denies: headache(s) Psych: Denies: anxiety or depression Jitendra/Lymph: Denies: easy bleeding All/Imm: Denies: urticaria, throat swelling or facial swelling Physical Exam Const: COMMON NORMALS: patient oriented x3 and healthy appearing; apparent distress (Appears in acute distress active rigors and shaking noted on exam bilateral) HENMT: COMMON NORMALS: normocephalic and atraumatic HEAD & SCALP: normocephalic and atraumatic Eye: COMMON NORMALS: Equal, round and reactive pupils present and EOMs intact bilaterally PUPIL: Yes Equal, round and reactive pupils present Neck/C-Spine: COMMON NORMALS: full ROM, supple and no JVD Lymph: LYMPHATIC: no lymphadenopathy noted Chest: COMMONS NORMALS: normal inspection of the chest and normal palpation of entire chest wall Resp: COMMON NORMALS: normal respiratory effort and No retractions; negative for clear to auscultation bilaterally (Diminished breath sounds appreciated bilaterally no obvious wheezing crackl) EFFORT & INSPECTION: Yes able to speak in complete sentences and Yes symmetric chest movement AUSCULTATION: not clear to auscultation bilaterally (Diminished breath sounds appreciated bilaterally no obvious wheezing crackl) Cardio: COMMON NORMALS: no JVD RHYTHM: abnormal rhythm OTHER: Tachycardic on exam rate at approximately 105 GI: COMMON NORMALS: Normal to inspection, nondistended, normoactive bowel sounds present, Soft to palpation and non-tender INSPECTION: Yes normal to inspection PALPATION: Yes Soft to palpation : COMMON NORMALS: Yes no CVA tenderness BLADDER/KIDNEY EXAM: Yes no CVA tenderness Back/Pelvis: COMMON NORMALS: no CVA tenderness Extremity: COMMON NORMALS: normal to inspection and full ROM Neuro: COMMON NORMALS: patient oriented x3, CN's II-XII intact bilaterally, moves all extremities and no focal motor deficits OTHER: No focal neuro deficits on exam Psych: COMMON NORMALS: mental status grossly normal, Normal thought process present, cooperative and normal affect THOUGHT PROCESS: Normal thought process present Skin: COMMON NORMALS: no rashes or lesions noted GENERAL SKIN EXAM: no rashes or lesions noted Course Vital Signs: Vital signs: Vital Signs Temperature 98 F 07/14/21 17:31 Pulse Rate 66 07/14/21 21:20 Respiratory Rate 18 07/14/21 21:20 Blood Pressure 149/87 07/14/21 21:20 Pulse Oximetry 96 07/14/21 21:20 MDM - Chest Pain Medical Decision Making Due to the patient sitting condition IV was established lab work and imaging was obtained we will continue to follow patient provided initially provided Toradol for his rigors lactic acid was obtained. Patient did report having a rash on his face prior to symptoms developing but not hernia obvious wheezing at this time will be providing him Decadron if this is a since suspected allergic reaction. IV fluids were provided urine drug screen as well as cardiac work-up will be obtained we will continue to follow this patient was signed out to my colleague Dr. Murguia 18:00 Lab Data : 07/14/21 17:50 07/14/21 17:50 Radiology Impressions Chest X-Ray 07/14/21 17:39 IMPRESSION: No acute cardiopulmonary abnormality. Laboratory Results WBC 13.5 10^3/uL (4.0-10.0) H 07/14/21 17:50 RBC 5.71 10^6/uL (4.1-5.3) H 07/14/21 17:50 Hgb 17.4 g/dL (11.7-16.6) H 07/14/21 17:50 Hct 52.7 % (42.0-52.0) H 07/14/21 17:50 MCV 92.3 fl (80-94) 07/14/21 17:50 MCH 30.5 pg (28.0-34.0) 07/14/21 17:50 MCHC 33.0 g/dL (30.0-36.0) 07/14/21 17:50 RDW 13.1 % (12.1-15.1) 07/14/21 17:50 Plt Count 408 10^3/cmm (130-400) H 07/14/21 17:50 MPV 9.5 fL (7.4-10.4) 07/14/21 17:50 Neut % (Auto) 66.1 % 07/14/21 17:50 Lymph % (Auto) 26.0 % 07/14/21 17:50 Denali % (Auto) 5.3 % 07/14/21 17:50 Eos % (Auto) 1.8 % 07/14/21 17:50 Baso % (Auto) 0.4 % 07/14/21 17:50 Neut # (Auto) 8.95 10^3/uL (1.8-7.7) H 07/14/21 17:50 Lymph # (Auto) 3.5 10^3/uL (0.8-4.8) 07/14/21 17:50 [place]ali # (Auto) 0.7 10^3/uL (0.2-0.9) 07/14/21 17:50 Eos # (Auto) 0.2 10^3/uL (0.0-0.8) 07/14/21 17:50 Baso # (Auto) 0.1 10^3/uL (0.0-0.1) 07/14/21 17:50 Nucleated RBC % (auto) 0 % 07/14/21 17:50 Nucleated RBCs # 0.0 /100WBC 07/14/21 17:50 Sodium 137 mmol/L (136-145) 07/14/21 17:50 Potassium 3.7 mmol/L (3.5-5.1) 07/14/21 17:50 Chloride 100 mmol/L (98-107) 07/14/21 17:50 Carbon Dioxide 23 mmol/L (22-29) 07/14/21 17:50 Anion Gap 17.7 (5-19) 07/14/21 17:50 BUN 10 mg/dL (6-20) 07/14/21 17:50 Creatinine 0.7 mg/dL (0.7-1.2) 07/14/21 17:50 GFR Calculation 122.0 mL/min (90-130) 07/14/21 17:50 Glucose 92 mg/dL (65-115) 07/14/21 17:50 Calculated Osmolality 283 mOsm/kg (285-295) L 07/14/21 17:50 Lactate 3.1 mmol/L (0.5-2.2) H 07/14/21 17:50 Calcium 10.1 mg/dL (8.5-10.5) 07/14/21 17:50 Lactate Dehydrogenase 127 U/L (135-225) L 07/14/21 17:50 Troponin T Baseline 6 ng/L (0-15) 07/14/21 17:50 Troponin T 120 Minute 6.73 ng/L (0-15) 07/14/21 19:52 Delta Troponin T Not Reportable 07/14/21 19:52 C-Reactive Protein 3.0 mg/L (0.0-4.9) 07/14/21 17:50 Urine Opiates Screen Negative ng/mL (Negative) 07/14/21 18:20 Ur Barbiturates Screen Negative ng/mL (Negative) 07/14/21 18:20 Ur Phencyclidine Scrn Negative ng/mL (Negative) 07/14/21 18:20 Ur Amphetamines Screen Positive ng/mL (Negative) H 07/14/21 18:20 U Benzodiazepines Scrn Negative ng/mL (Negative) 07/14/21 18:20 Urine Cocaine Screen Negative ng/mL (Negative) 07/14/21 18:20 U Marijuana (THC) Screen Positive ng/mL (Negative) H 07/14/21 18:20 Ethyl Alcohol < 10 mg/dL (0-10) 07/14/21 17:50 Coronavirus 229E (PCR) Not detected (NOT DETECT) 07/14/21 18:21 SARS-CoV-2 (PCR) Not detected (NOT DETECT) 07/14/21 18:21 Discharge Plan Discharge Patient Disposition: Home Clinical Impression: Chest pain, Urticaria Condition: Stable Prescriptions: New Benadryl 25 mg capsule 25 mg PO Q6H PRN (Reason: itching) Qty: 30 0RF Medrol (Umer) 4 mg tablets,dose pack See Rx Instructions .ROUTE .COMPLEX Qty: 21 0RF Rx Instructions: orally per package directions Discharge Orders: Discharge ED (Routine); Ordered 07/14/21 Ordered By: Marc Murguia Patient Instructions: Chest Pain (ED), Urticaria (ED) Activity Restrictions/Additional Instructions: Return for worsening chest pain, shortness of breath, fever, vomiting, other concerning symptoms. Avoid any stimulant use as this can worsen your symptoms. A case management referral has been placed for the heart care clinic. Medication as directed for hives. Coding Level of Care Code ED Java Groovy Developer for Chg Fwd Exam Comprehensive Documented by User: Marc Murguia DO 07/14/21 23:41 HPI - Chest Pain General: Chief Complaint: Chest Pain Stated Complaint: Hx of heart issues, V/Hives Chest Pains Time Seen by Provider: 07/14/21 17:29 Course Vital Signs: Vital signs: Vital Signs Temperature 98 F 07/14/21 17:31 Pulse Rate 66 07/14/21 21:20 Respiratory Rate 18 07/14/21 21:20 Blood Pressure 149/87 07/14/21 21:20 Pulse Oximetry 96 07/14/21 21:20 MDM - Chest Pain Medical Decision Making Due to the patient sitting condition IV was established lab work and imaging was obtained we will continue to follow patient provided initially provided Toradol for his rigors lactic acid was obtained. Patient did report having a rash on his face prior to symptoms developing but not hernia obvious wheezing at this time will be providing him Decadron if this is a since suspected allergic reaction. IV fluids were provided urine drug screen as well as cardiac work-up will be obtained we will continue to follow this patient was signed out to my colleague Dr. Murguia 18:00 45-year-old gentleman checked out to me at shift change by Dr. Dawkins. This gentleman experienced left-sided chest discomfort without significant radiation. He was quite hypertensive. He was given nitroglycerin as well as some fentanyl with improvement. First troponin and 2-hour troponin are both 6. EKG did not show any acute ST changes. Shows a sinus rhythm. Hemoglobin is 17.4. White blood cell count 13.5. Chest x-ray is negative. BMP is negative. Alcohol is nondetectable. Urine drug screen is positive for marijuana and amphetamines. He was counseled not to use stimulants, as it may provoke these types of conditions. He will be allowed home. We will put in case management referral for heart care clinic. Lab Data : 07/14/21 17:50 07/14/21 17:50 Radiology Impressions Chest X-Ray 07/14/21 17:39
[2021-07-14 17:58] LABS: Basophils # 0.1 10^3/uL (0.0-0.1); Basophils % 0.4 %; Eosinophils # 0.2 10^3/uL (0.0-0.8); Eosinophils % 1.8 %; Hematocrit 52.7 % (42.0-52.0); Hemoglobin 17.4 g/dL (11.7-16.6); Lymphocytes # 3.5 10^3/uL (0.8-4.8); Mean Corpuscular Hemoglobin 30.5 pg (28.0-34.0); Mean Corpuscular Volume 92.3 fl (80-94); Mean Platelet Volume 9.5 fL (7.4-10.4); Monocytes # 0.7 10^3/uL (0.2-0.9); Monocytes % 5.3 %; Neutrophils # 8.95 10^3/uL (1.8-7.7); Neutrophils % 66.1 %; Nucleated Red Blood Cells % 0 %; Platelet Count 408 10^3/cmm (130-400); Red Blood Count 5.71 10^6/uL (4.1-5.3); Red Cell Distribution Width 13.1 % (12.1-15.1); White Blood Count 13.5 10^3/uL (4.0-10.0)
[2021-07-14] MEDS: dexamethasone 10 mg/mL INJ IVP (17:59)
[2021-07-14] MEDS: ketorolac 30 mg/mL INJ 15 MG IVP (17:59)
[2021-07-14] MEDS: sodium chloride 0.9% 1,000 ML 999 ML IV (18:00)
[2021-07-14 18:20] LABS: Lactate (Lactic Acid level) 3.1 mmol/L (0.5-2.2)
[2021-07-14 18:23] LABS: Alcohol Level < 10 mg/dL (0-10); Anion Gap 17.7 (5-19); Blood Urea Nitrogen 10 mg/dL (6-20); Calcium 10.1 mg/dL (8.5-10.5); Carbon Dioxide 23 mmol/L (22-29); Chloride 100 mmol/L (98-107); Creatinine Clr Calc Pharmacy 139.7352; Glucose 92 mg/dL (65-115); Lactate Dehydrogenase 127 U/L (135-225); Osmolality Calculated 283 mOsm/kg (285-295); Potassium 3.7 mmol/L (3.5-5.1); Sodium 137 mmol/L (136-145)
[2021-07-14 18:24] LABS: Troponin(5th) Baseline 6 ng/L (0-15)
[2021-07-14 18:43] LABS: Amphetamines Screen Urine Positive (Negative); Barbiturates Screen Urine Negative (Negative); Benzodiazepines Screen Urine Negative (Negative); Cocaine Screen Urine Negative (Negative); Opiate Screen Urine Negative (Negative); PCP Screen Urine Negative (Negative); THC Screen Urine Positive (Negative)
[2021-07-14] MEDS: ondansetron 2 mg/ML SDV 2 mL 4 MG IVP (18:51)
[2021-07-14] MEDS: fentaNYL 50 mcg/mL INJ 2mL 75 MCG IVP (18:52)
[2021-07-14] MEDS: nitroglycerin 0.4 mg sublingual Tablet SUBLINGUAL ×2 (18:52→19:20)
[2021-07-14] MEDS: aspirin 325 mg Tablet PO (18:57)
--- NOTE | 2021-07-14 19:21 | PC.NURSE ---
Pt reports CP continues 11/29 after 1 ntg tab. BP 133/83. 2nd ntg tab given.
--- NOTE | 2021-07-14 19:39 | ECG_ITS ---
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 Measurements Intervals [place] Rate: 63 P: 25 MA: 146 QRS: -9 QRSD: 90 T: 23 QT: 377 QTc: 387 Interpretive Statements SINUS RHYTHM WITH SINUS ARRHYTHMIA POSSIBLE RIGHT VENTRICULAR CONDUCTION DELAY [RSR (QR) IN V1/V2] MINIMAL VOLTAGE CRITERIA FOR LVH, CONSIDER NORMAL VARIANT [MEETS CRITERIA IN ONE OF: R(aVL), S(V1), R(V5), R(V5/V6)+S(V1)] Compared to ECG 07/14/2021 17:42:32 No significant changes Electronically Signed On 07-15-2021 9:06:47 CDT by Otoniel Rivera M.D. [id number]
[2021-07-14 20:17] LABS: Troponin 5 2HR 6.73 ng/L (0-15)
[2021-07-14] MEDS: LORazepam 2 mg/mL INJ 1 mL 1 MG IVP (20:18)
[2021-07-14 20:30] LABS: Adenovirus Not Detected (NOT DETECT); Chlamydia Pneumoniae Not Detected (NOT DETECT); Coronavirus 229E,HKU1,NL63,OC4 Not Detected (NOT DETECT); Human Metapneumovirus Not Detected (NOT DETECT); Human Rhinovirus/Enterovirus Not Detected (NOT DETECT); Influenza A Not Detected (NOT DETECT); Influenza A H1 Not Detected (NOT DETECT); Influenza A H1-2009 Not Detected (NOT DETECT); Influenza A H3 Not Detected (NOT DETECT); Influenza B Not Detected (NOT DETECT); Mycoplasma Pneumoniae Not Detected (NOT DETECT); Parainfluenza Virus Type 1 Not Detected (NOT DETECT); Parainfluenza Virus Type 2 Not Detected (NOT DETECT); Parainfluenza Virus Type 3 Not Detected (NOT DETECT); Parainfluenza Virus Type 4 Not Detected (NOT DETECT); Respiratory Syncytial Virus A Not Detected (NOT DETECT); Respiratory Syncytial Virus B Not Detected (NOT DETECT); SARS-COV-2 Not Detected (NOT DETECT)
--- NOTE | 2021-07-17 09:37 | DCPLANNER ---
Addendum entered by Sandra Tesfaye 09/07/21 10:12: Patient had a follow up appointment scheduled for 09.05.21 with [facility] - patient did not attend appointment. Addendum entered by Sandra Tesfaye 07/18/21 14:14: Patient has a follow up appointment scheduled for Sunday, September 05, 2021 at 12:[address] Perez at [facility]. plumbing manager called patient with appointment information. Original Note: plumbing manager had message to schedule a follow up appointment for patient with [facility]. plumbing manager sent patients information to the [facility] front staff thru the [employer] task/message system. Patients information will be printed and reviewed. Clinic will notify showcase maker with appointment information.
== END 2021-07-14 21:20 | disposition home or self-care (01) ==
PROVIDERS: Emergency Medicine; Emergency Provider Emergency Medicine
DX: R07.9 Chest pain, unspecified (principal); L50.9 Urticaria, unspecified; Z20.822 Contact with and (suspected) exposure to COVID-19
CPT/HCPCS: 71045; 80048; 80306; 80307; 83605; 83615; 84484; 85025; 86140; 87040; 87635; 93005; 96361; 96374; 96375; 99284; J1100; J1885; J2060; J2405; J3010; J7030

== ENCOUNTER 2021-10-16 17:14 | Observation (INO) | payer MEDICAID, SELFPAY ==
[2021-10-16] VITALS (12 sets, daily range): BP systolic 105–168; BP diastolic 61–117; PULSE 56–87; RESP 16–20; TEMP 36.5–36.6; O2SAT 94–100; BMI 31.3; BMI 32.0
--- NOTE | 2021-10-16 17:22 | ECG_ITS ---
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 Measurements Intervals [place] Rate: 78 P: 20 NC: 149 QRS: -7 QRSD: 92 T: 33 QT: 346 QTc: 394 Interpretive Statements SINUS RHYTHM Compared to ECG 07/14/2021 20:11:30 Sinus arrhythmia no longer present Electronically Signed On 10-16-2021 17:29:51 CDT by Otoniel Rivera M.D. [email or web address].[email or web address]/[id number]
--- NOTE | 2021-10-16 17:28 | ED_ITS ---
Documented by User: Ed Sweeney DO 10/16/21 17:50 HPI - Chest Pain General: Chief Complaint: Chest Pain Stated Complaint: Chest Pain, Arm pain Time Seen by Provider: 10/16/21 17:21 Source: patient Limitations: no limitations History of Present Illness: 46-year-old male presents emergency room with complaint of chest discomfort that began last night. Began while he was at rest. Patient states he has a known history of coronary disease he tells me he was supposed have a stent but declined because of insurance reasons several years ago he had an angiogram his father said that he had a 70% blocked artery. I found a angiography report from 2018 that showed third 20 to 30% and 1 lesion no other vessel disease was noted. Not having any chest pain at this time. MD complaint: chest pain Pertinent past history: coronary artery disease Onset (ago): minute(s) Timing of current episode: episodic Prior episodes: Yes Onset: during rest Pain location: left chest Pain radiation: left arm Severity: moderate Quality: aching and heaviness Relieving factors: nothing Exacerbating factors: nothing Associated symptoms: Deny abdominal pain, diaphoresis, dyspnea, fever(s), leg edema, nausea, palpitations, sense of impending doom, syncope or vomiting Treatment prior to arrival: none Review of Systems Const: Denies: fever(s) or diaphoresis ENMT: Denies: throat pain, ear or mastoid pain, nasal discharge or nasal congestion Card: Denies: chest pain, palpitations, irregular heart rhythm, edema, swelling of feet/ankles or syncope Resp: Denies: dyspnea GI: Denies: abdominal pain, nausea or vomiting : Denies: flank pain, dysuria, urinary frequency or urinary urgency Skin/Breast: Denies: rash or pruritus [facility] ED PFSH: Medical History (Updated 10/16/21 @ 19:20 by Lissy Musa MD) Coronary artery disease Physical Exam Const: GENERAL APPEARANCE: cooperative and comfortable ORIENTATION/CONSCIOUSNESS: Yes awake, Yes oriented to person, Yes oriented to place and Yes oriented to time HENMT: COMMON NORMALS: normocephalic, atraumatic and hearing grossly normal bilaterally HEAD & SCALP: normocephalic and atraumatic Neck/C-Spine: COMMON NORMALS: no JVD Resp: COMMON NORMALS: normal respiratory effort, No retractions, No use of ac cessory muscles and clear to auscultation bilaterally AUSCULTATION: clear to auscultation bilaterally Cardio: COMMON NORMALS: no JVD, regular rate, regular rhythm and No murmurs present (Cardio) RATE: regular rate RHYTHM: regular rhythm GI: COMMON NORMALS: Soft to palpation and No hepatosplenomegaly present AUSCULTATION: Yes normoactive bowel sounds PALPATION: Yes Soft to palpation, No Tenderness to palpation present (GI), No Guarding due to palpation present (GI) and Yes No hepatosplenomegaly present Extremity: COMMON NORMALS: normal to inspection, capillary refill normal, no clubbing, cyanosis or edema, no calf tenderness and no pedal edema Neuro: SENSORIUM/ORIENTATION: Yes oriented to person, Yes oriented to place and Yes oriented to time Skin: COMMON NORMALS: no rashes or lesions noted GENERAL SKIN EXAM: no rashes or lesions noted Course Vital Signs: Vital signs: Vital Signs Pulse Rate 64 10/16/21 18:10 Respiratory Rate 16 10/16/21 17:25 Blood Pressure 123/71 10/16/21 18:10 Pulse Oximetry 94 10/16/21 18:10 MDM - Chest Pain Medical Decision Making Care signed out to Dr. Musa at change of shift. See final notes for diagnosis and disposition. Lab Data : 10/16/21 17:23 10/16/21 17:23 Radiology Impressions Chest X-Ray 10/16/21 17:56 IMPRESSION: No acute findings. Laboratory Results WBC 7.9 10^3/uL (4.0-10.0) 10/16/21 17:23 RBC 4.81 10^6/uL (4.1-5.3) 10/16/21 17:23 Hgb 14.5 g/dL (11.7-16.6) 10/16/21 17:23 Hct 42.5 % (42.0-52.0) 10/16/21 17:23 MCV 88.4 fl (80-94) 10/16/21 17:23 MCH 30.1 pg (28.0-34.0) 10/16/21 17:23 MCHC 34.1 g/dL (30.0-36.0) 10/16/21 17:23 RDW 13.0 % (12.1-15.1) 10/16/21 17:23 Plt Count 301 10^3/cmm (130-400) 10/16/21 17:23 MPV 9.7 fL (7.4-10.4) 10/16/21 17: Neut % (Auto) 54.7 % 10/16/21 17:23 Lymph % (Auto) 35.8 % 10/16/21 17:23 Guadalupe % (Auto) 5.8 % 10/16/21 17: Eos % (Auto) 3.2 % 10/16/21 17:23 Baso % (Auto) 0.4 % 10/16/21 17:23 Neut # (Auto) 4.32 10^3/uL (1.8-7.7) 10/16/21 17: Lymph # (Auto) 2.8 10^3/uL (0.8-4.8) 10/16/21 17: Guadalupe # (Auto) 0.5 10^3/uL (0.2-0.9) 10/16/21 17: Eos # (Auto) 0.3 10^3/uL (0.0-0.8) 10/16/21 17:23 Baso # (Auto) 0.0 10^3/uL (0.0-0.1) 10/16/21 17: Nucleated RBC % (auto) 0 % 10/16/21 17: Nucleated RBCs # 0.0 /100WBC 10/16/21 17:23 Sodium 139 mmol/L (136-145) 10/16/21 17: Potassium 3.9 mmol/L (3.5-5.1) 10/16/21 17: Chloride 102 mmol/L (98-107) 10/16/21 17:23 Carbon Dioxide 27 mmol/L (22-29) 10/16/21 17:23 Anion Gap 13.9 (5-19) 10/16/21 17:23 BUN 6 mg/dL (6-20) 10/16/21 17:23 Creatinine 0.8 mg/dL (0.7-1.2) 10/16/21 17:23 GFR Calculation 104.1 mL/min (90-130) 10/16/21 17:23 Glucose 96 mg/dL (65-115) 10/16/21 17:23 Calculated Osmolality 285 mOsm/kg (285-295) 10/16/21 17:23 Calcium 9.2 mg/dL (8.5-10.5) 10/16/21 17:23 Total Bilirubin 0.4 mg/dL (0.15-1.2) 10/16/21 17:23 AST 17 U/L (0-40) 10/16/21 17:23 ALT 16 U/L (0-41) 10/16/21 17:23 Alkaline Phosphatase 70 IU/L (40-130) 10/16/21 17:23 Troponin T Baseline 6 ng/L (0-15) 10/16/21 17:23 Total Protein 7.0 g/dL (6.6-8.7) 10/16/21 17:23 Albumin 4.3 g/dL (3.5-5.2) 10/16/21 17:23 Globulin 2.7 g/dL (1.3-4.6) 10/16/21 17:23 Discharge Plan Discharge Patient Disposition: Admitted As Inpatient Clinical Impression: Chest pain Condition: Stable Prescriptions: No Action No Known Home Medications 0RF Coding Level of Care Code ED Cloud Solutions Architect for Chg Fwd Exam Comprehensive Documented by User: Lissy Musa MD 10/16/21 19:20 HPI - Chest Pain General: Chief Complaint: Chest Pain Stated Complaint: Chest Pain, Arm pain Time Seen by Provider: 10/16/21 17:21 [facility] ED PFSH: Medical History (Updated 10/16/21 @ 19:20 by Lissy Musa MD) Coronary artery disease Course Vital Signs: Vital signs: Vital Signs Pulse Rate 64 10/16/21 18:10 Respiratory Rate 16 10/16/21 17:25 Blood Pressure 123/71 10/16/21 18:10 Pulse Oximetry 94 10/16/21 18:10 MDM - Chest Pain Medical Decision Making Care signed out to Dr. Musa at change of shift. See final notes for diagnosis and disposition. Patient presents here with chest pain his initial troponin is normal he is continue to have some intermittent pain here I did speak to the hospitalist and will admit for ACS rule out. He has no signs of dissection or pulmonary embolism. Lab Data : 10/16/21 17:23 10/16/21 17:23 Radiology Impressions Chest X-Ray 10/16/21 17:56 IMPRESSION: No acute findings. Laboratory Results WBC 7.9 10^3/uL (4.0-10.0) 10/16/21 17: RBC 4.81 10^6/uL (4.1-5.3) 10/16/21 17: Hgb 14.5 g/dL (11.7-16.6) 10/16/21 17: Hct 42.5 % (42.0-52.0) 10/16/21 17: MCV 88.4 fl (80-94) 10/16/21 17: MCH 30.1 pg (28.0-34.0) 10/16/21 17: MCHC 34.1 g/dL (30.0-36.0) 10/16/21 17: RDW 13.0 % (12.1-15.1) 10/16/21 17: Plt Count 301 10^3/cmm (130-400) 10/16/21 17:23 MPV 9.7 fL (7.4-10.4) 10/16/21 17: Neut % (Auto) 54.7 % 10/16/21 17: Lymph % (Auto) 35.8 % 10/16/21 17:23 Guadalupe % (Auto) 5.8 % 10/16/21 17:23 Eos % (Auto) 3.2 % 10/16/21 17:23 Baso % (Auto) 0.4 % 10/16/21 17: Neut # (Auto) 4.32 10^3/uL (1.8-7.7) 10/16/21 17: Lymph # (Auto) 2.8 10^3/uL (0.8-4.8) 10/16/21 17:23 Guadalupe # (Auto) 0.5 10^3/uL (0.2-0.9) 10/16/21 17:23 Eos # (Auto) 0.3 10^3/uL (0.0-0.8) 10/16/21 17:23 Baso # (Auto) 0.0 10^3/uL (0.0-0.1) 10/16/21 17:23 Nucleated RBC % (auto) 0 % 10/16/21 17: Nucleated RBCs # 0.0 /100WBC 10/16/21 17:23 Sodium 139 mmol/L (136-145) 10/16/21 17:23 Potassium 3.9 mmol/L (3.5-5.1) 10/16/21 17:23 Chloride 102 mmol/L (98-107) 10/16/21 17: Carbon Dioxide 27 mmol/L (22-29) 10/16/21 17:23 Anion Gap 13.9 (5-19) 10/16/21 17:23 BUN 6 mg/dL (6-20) 10/16/21 17:23 Creatinine 0.8 mg/dL (0.7-1.2) 10/16/21 17:23 GFR Calculation 104.1 mL/min (90-130) 10/16/21 17:23 Glucose 96 mg/dL (65-115) 10/16/21 17:23 Calculated Osmolality 285 mOsm/kg (285-295) 10/16/21 17:23 Calcium 9.2 mg/dL (8.5-10.5) 10/16/21 17:23 Total Bilirubin 0.4 mg/dL (0.15-1.2) 10/16/21 17:23 AST 17 U/L (0-40) 10/16/21 17:23 ALT 16 U/L (0-41) 10/16/21 17:23 Alkaline Phosphatase 70 IU/L (40-130) 10/16/21 17:23 Troponin T Baseline 6 ng/L (0-15) 10/16/21 17:23 Total Protein 7.0 g/dL (6.6-8.7) 10/16/21 17:23 Albumin 4.3 g/dL (3.5-5.2) 10/16/21 17:23 Globulin 2.7 g/dL (1.3-4.6) 10/16/21 17:23 Discharge Plan Discharge Patient Disposition: Admitted As Inpatient Clinical Impression: Chest pain Condition: Stable Prescriptions: No Action No Known Home Medications 0RF Coding Level of Care Code ED Cloud Solutions Architect for Chg Fwd Exam Comprehensive
[2021-10-16] MEDS: aspirin 81 mg Chew Tablet 324 MG PO (17:32)
[2021-10-16 17:37] LABS: Basophils % 0.4 %; Eosinophils # 0.3 10^3/uL (0.0-0.8); Eosinophils % 3.2 %; Hematocrit 42.5 % (42.0-52.0); Hemoglobin 14.5 g/dL (11.7-16.6); Lymphocytes # 2.8 10^3/uL (0.8-4.8); Lymphocytes % 35.8 %; Mean Corpuscular HGB Conc 34.1 g/dL (30.0-36.0); Mean Corpuscular Hemoglobin 30.1 pg (28.0-34.0); Mean Corpuscular Volume 88.4 fl (80-94); Mean Platelet Volume 9.7 fL (7.4-10.4); Monocytes # 0.5 10^3/uL (0.2-0.9); Monocytes % 5.8 %; Neutrophils # 4.32 10^3/uL (1.8-7.7); Neutrophils % 54.7 %; Nucleated Red Blood Cells % 0 %; Platelet Count 301 10^3/cmm (130-400); Red Blood Count 4.81 10^6/uL (4.1-5.3); White Blood Count 7.9 10^3/uL (4.0-10.0)
[2021-10-16] MEDS: nitroglycerin 1 gm/inch oint Pkt 1 INCH TOPICAL (17:52)
--- NOTE | 2021-10-16 17:56 | XRR_ITS ---
PROCEDURE INFORMATION: Exam: XR Chest Exam date and time: 10/16/2021 6:02 PM Age: 46 years old Clinical indication: Angina; Additional info: Cp TECHNIQUE: Imaging protocol: Radiologic exam of the chest. Views: 1 view. COMPARISON: CR XR chest 1V portable [id number] 07/14/2021 5:50 PM FINDINGS: Lungs: Unremarkable. No consolidation. Pleural spaces: Unremarkable. No pleural effusion. No pneumothorax. Heart/Mediastinum: Unremarkable. No cardiomegaly. Bones/joints: Unremarkable. XR/XR chest 1V portable [id number] IMPRESSION: No acute findings.
[2021-10-16 18:01] LABS: Alanine Aminotransferase 16 U/L (0-41); Albumin Level 4.3 g/dL (3.5-5.2); Alkaline Phosphatase 70 IU/L (40-130); Anion Gap 13.9 (5-19); Aspartate Amino Transferase 17 U/L (0-40); Blood Urea Nitrogen 6 mg/dL (6-20); Calcium 9.2 mg/dL (8.5-10.5); Carbon Dioxide 27 mmol/L (22-29); Chloride 102 mmol/L (98-107); Globulin 2.7 g/dL (1.3-4.6); Glomerular Filtration Rate 104.1 mL/min (90-130); Glucose 96 mg/dL (65-115); Osmolality Calculated 285 mOsm/kg (285-295); Potassium 3.9 mmol/L (3.5-5.1); Sodium 139 mmol/L (136-145); Total Bilirubin 0.4 mg/dL (0.15-1.2)
[2021-10-16 18:02] LABS: Troponin(5th) Baseline 6 ng/L (0-15)
[2021-10-16] MEDS: ondansetron 2 mg/ML SDV 2 mL 4 MG IVP (19:14)
[2021-10-16] MEDS: morphine 4 mg/mL SDV 1 mL IVP (19:14)
--- NOTE | 2021-10-16 19:22 | ECG_ITS ---
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 Measurements Intervals [place] Rate: 54 P: 54 CO: 157 QRS: 16 QRSD: 92 T: 44 QT: 398 QTc: 380 Interpretive Statements SINUS BRADYCARDIA Compared to ECG 10/16/2021 17:21:59 Sinus rhythm no longer present Electronically Signed On 10-16-2021 23:25:58 CDT by Otoniel Rivera M.D. [id number]
[2021-10-16 19:45] LABS: Troponin 5 2HR Delta 0 ABS# (0-10)
[2021-10-16 20:44] LABS: D Dimer <= 0.27 ug/mIFEU (0-0.59)
[2021-10-16] MEDS: HYDROmorphone 1 mg/mL INJ 1 mL IVP (20:58)
[2021-10-16] MEDS: morphine 4 mg/mL SDV 1 mL 2 MG IVP (22:15)
--- NOTE | 2021-10-16 23:06 | P.HP_ITS ---
Providers/Chief Complaint Admitting Physician: Tala Velazquez MD Chief Complaint: Chest Pain, Arm pain History of Present Illness Gideon Lion is a 46 year old male who presents with complaints of chest discomfort that started last night. Describes pain as a burning sensation radiating into the left arm, shoulder and neck, intermittent in nature. Symptoms precipitated by exertion. This morning ~9AM he had similar episode while cl imbing down stairs and states that he passed out. Unknown how long the episode lasted. States that it feels like his heart skipped a beat . Associated with diaphoresis+. Nausea+. He reports no recent fever, cough or dyspnea. No current chest discomfort at this time. H/o similar symptoms in 2018 for which he underwent coronary angiogram- 30% LAD stenosis. He was discharged on Imdur due to concern for coronary spasm. Currently however he is only on ASA 81mg po daily. Ekg today with sinus bradycardia, no acute ST-T wave changes, baseline trop at 6, unchanged at 2 hrs. pending 6 hr level. Echo 2018 Mild anterior wall hypokinesis.left ventricular ejection fraction is estimated at 60 %. states he has a had a stress test in 2019 however I am unable to find records in the computer. Review of Systems General: Reports: 10 or more systems reviewed and unremarkable except in HPI and below Const: Denies: fever(s), chills or body aches Eyes: Denies: change in vision, blurry vision or photophobia ENMT: Reports: hoarseness; Denies: throat pain, enlarged tonsils, odynophagia or nasal congestion Card: Denies: chest pain, palpitations, irregular heart rhythm, edema, swelling of feet/ankles, lightheadedness, pre-syncope, dyspnea on exertion or orthopnea Resp: Denies: dyspnea, productive cough, non-productive cough, wheezing, stridor, pain on inspiration, change in phlegm color, hemoptysis or chest congestion GI: Denies: abdominal pain, nausea, vomiting, hematemesis, coffee ground emesis, dysphagia, heartburn, diarrhea, constipation, GI cramping, change in stool character, hematochezia or melena : Denies: flank pain, dysuria, urinary frequency, urinary urgency, urinary hesitancy or hematuria Musc: Denies: neck pain, back pain, extremity pain, joint swelling, joint warmth or deformity Neuro: Denies: headache(s), numbness in extremities, weakness in extremities, sensory changes, difficulty walking, frequent falls, dizziness, vertigo, behavioral changes, Slurred speech present or seizure-like activity Psych: Denies: anxiety, depression, suicidal ideation or homicidal ideation Endo: Denies: polyuria, polydipsia, tired all the time, cold intolerance or hot flashes Jitendra/Lymph: Denies: easy bruising or easy bleeding Medications/Allergies Home Medications Medication Instructions Recorded Confirmed Last Taken Type No Known Home Medications 10/16/21 10/16/21 Unknown History Allergies Allergy/AdvReac Type Severity Reaction Status Date / Time No Known Allergies Allergy Verified 10/16/21 17:39 PFSH Acute PFSH: Medical History Coronary artery disease Other PFSH information: Supplemental PFSH Information: chews tobacco. Vitals/I&O/Wt Last Vital Signs Temp 97.7 F 10/16/21 21:50 Pulse 61 10/16/21 22:19 Resp 16 10/16/21 22:15 BP 142/86 10/16/21 21:50 Pulse Ox 97 10/16/21 22:19 Weight last 48 hrs Weight 92.76 kg Weight 90.718 kg Physical Exam Narrative: General: No acute distress, AO x3 HEENT: PERRLA, pupils bilaterally equal and reactive, pallors not present Chest: Normal vesicular breath sounds, no added sounds, equal good air entry bilaterally CVS: S1-S2 regular, no murmurs, no tachycardia, no gallops, no rubs Abdomen: Soft, nontender, no organomegaly, bowel sounds present Neuro: No focal deficits, no facial deformity, AO x3, power 5/5 in all limbs Extremities: no edema, clubbing or cyanosis Data : 10/16/21 17:23 10/16/21 17:23 A&P Assessment and plan (1) Chest pain: Chest pain concerning for anginal type Admit to CSU in observation Continous telemetry monitoring EKG with sinus bradycardia, no acute ST-T wave changes, BP maintained Trop baseline 6, 2 hr unchanged, delta not significant Will trend at 6 hrs Currently chest pain free Plan for cardiac stress test in am NPO p/MN for same Screen for DM, dyslipidemia Asa 81mg po qd, add atorvastatin 40mg po daily, prn sublingual nitro screen for PE with D dimer, low clinical suspicion currently Status: Acute (2) Bradycardia: Sinus bradycardia, asymptomatic currently Monitor on telemetry Status: Acute Attestations Medical Necessity Statement*: less than 2 midnight admission anticipated for above defined care Coding Level of Care Code Acute Cvir Tech for [facility] Darian Diagnoses Chest pain R07.9 Bradycardia R00.1
--- NOTE | 2021-10-16 23:22 | ECG_ITS ---
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 Measurements Intervals [place] Rate: 50 P: 56 MT: 150 QRS: 20 QRSD: 101 T: 46 QT: 410 QTc: 377 Interpretive Statements SINUS BRADYCARDIA Compared to ECG 10/16/2021 21:59:18 No significant changes Electronically Signed On 10-17-2021 20:09:53 CDT by Lupe Meuller M.D. [email or web address] Chassishigh[facility] community hospitalSevar Consultst. elizabeth hospitalJá Entendi/store/[id number]
[2021-10-16 23:54] LABS: Chol HDL Ratio 3.88 mg/dL (1.0-5.00); Cholesterol 163 mg/dL (0-200); HDL Cholesterol 42 mg/dL (60-100); LDL Cholesterol Calculated 86 mg/dL (50-129); LDL HDL Ratio 2.05 RATIO (0.00-3.22); Magnesium 1.9 mg/dL (1.7-2.3); Triglycerides 174 mg/dL (0-150)
[2021-10-16 23:58] LABS: Estmated Average Glucose 120; Hemoglobin A1C 5.8 % (4.0-6.0)
[2021-10-17] VITALS (7 sets, daily range): BP systolic 123–147; BP diastolic 73–89; PULSE 50–71; RESP 16–17; TEMP 36.4–36.7; O2SAT 94–97
[2021-10-17 00:02] LABS: Troponin 5 6HR Delta 0 ng/L (0-12)
--- NOTE | 2021-10-17 00:58 | USCV_ITS ---
Gideon Lion Age: 46 Gender: M : 1975 Exam Date: 10/17/2021 05:54 Ordering Phys: Tala Velazquez MD Technologist: KIRIT Exam Location: [facility] [place] Indication: Anginal chest pain, h/o CAD BP: 123 / 79 HR: 53 Rhythm: Sinus Technical Quality: MEASUREMENTS (Male / Female) Normal Values 2D ECHO LV Diastolic Diameter PLAX 4.1 cm 4.2 - 5.9 / 3.9 - 5.3 cm LV Systolic Diameter PLAX 2.9 cm IVS Diastolic Thickness 0.9 cm 0.6 - 1.0 / 0.6 - 0.9 cm IVS Systolic Thickness 1.2 cm LVPW Diastolic Thickness 1.1 cm 0.6 - 1.0 / 0.6 - 0.9 cm LVPW Systolic Thickness 1.5 cm RV Chamber Size 2.1 cm LVOT Diameter 2.0 cm LV Ejection Fraction 2D Teich 58.8 % LV Ejection Fraction MOD 2C 54.3 % LV Ejection Fraction 2C AL 54.2 % LA Diameter 3.1 cm LA Width 2.8 cm LA Height 3.6 cm RA Width 2.7 cm RA Height 3.6 cm Aorta at Sinotubular Diameter 2.7 cm IVC Diameter 1.8 cm M-MODE Aortic Annulus Diameter 2.3 cm LA Ao Ratio MM 1.4 MV E Point Septal Separation 0.5 cm DOPPLER AV Peak Velocity 135.0 cm/s LVOT Peak Velocity 120.0 cm/s AV Area Cont Eq vti 2.9 cm squared AV Area Cont Eq pk 2.8 cm squared MV Area PHT 4.2 cm squared Mitral E to A Ratio 0.8 MV E' Velocity 50.5 cm/s Mitral E to MV E' Ratio 9.0 Mitral E to LV E' Lateral Ratio 8.9 Mitral E to LV E' Septal Ratio 9.1 TR Peak Velocity 271.0 cm/s TR Peak Gradient 29.4 mmHg Right Atrial Pressure 8.0 mmHg Pulmonary Artery Systolic Pressu 37.4 mmHg PV Peak Velocity 97.0 cm/s RV Acceleration Time 0.1 s RV Ejection Time 0.4 s RV AcT/ET 0.2 FINDINGS Left Ventricle Normal left ventricular size, systolic function and wall thickness, with no regional wall motion abnormalities. Normal left ventricular wall thickness. Normal diastolic filling pattern. Right Ventricle The right ventricle is normal in size and function. Right Atrium The right atrium is normal in size. Left Atrium The left atrium is normal in size. Mitral Valve Structurally normal mitral valve without significant stenosis or prolapse. There is no mitral regurgitation. Aortic Valve Structurally normal aortic valve without significant sclerosis or stenosis. There is no aortic regurgitation. Tricuspid Valve Structurally normal tricuspid valve without significant stenosis or regurgitation. Pulmonary artery systolic pressure is normal. Pulmonic Valve Structurally normal pulmonic valve without significant stenosis. There is no pulmonic regurgitation. Pericardium Normal pericardium without effusion. Aorta Normal ascending aorta dimension. IVC The inferior vena cava pulmonary and hepatic veins appear normal. CONCLUSIONS Normal transthoracic echocardiogram. Dr. Rui Rendon MD (Electronically Signed) Final Date: 17 October 2021 15:50 S
--- NOTE | 2021-10-17 00:59 | NMCV_ITS ---
NM shamir perf SPECT r/s* [id number] Gideon Lion Age: 46 Gender: M : 1975 Exam Date: 10/17/2021 06:41 Ordering Phys: Tala Velazquez MD Technologist: HUGH House Exam Location: [facility] Indications: CHEST PAIN STRESS TEST [facility] IMAGE PROTOCOL Rest/Stress 1 Lexiscan Day Radiopharmaceutical Dose (mCi) Administration Site Administered by Rest: Tc-99m 10.8 IV HUGH Fournier Sestamibi Stress:Tc-99m 32.9 IV HUGH House Sestamibi Rest: 17-Oct-2021 60 Discovery 630 Stress: 17-Oct-2021 30 Discovery 630 0.4mg Lexiscan. Supine position only as patient was unable to lay prone. SPECT RESULTS Technical Quality: Excellent Raw Data Analysis: Subdiaphragmatic attenuation artifact Image Corrections: No attenuation or motion correction applied Summed Stress Score: 1 Summed Rest Score: 0 Summed Difference Score: 1 PERFUSION FINDINGS SPECT images demonstrate homogeneous tracer distribution throughout the myocardium. Attenuation artifact in mid anteroseptal wall. FUNCTIONAL RESULTS (calculated via Gated SPECT) Stress Image LV EF (%): 76 Stress EDV (mL):99 TID: 1.24 Stress ESV (mL):24 FUNCTIONAL FINDINGS: The left ventricle is normal in size. Transient Ischemia Dilatation of 1.2. There is normal left ventricular systolic function. The left ventricular ejection fraction is normal with a value of 76%. There is normal left ventricular wall thickening with no regional wall motion abnormality. Normal end-diastolic volume. IMPRESSIONS 1. Myocardial perfusion imaging is normal. Attenuation artifact noted in mid anteroseptal wall. 2. Transient ischemic dilation index of 1.2. This may represent hypertensive response/subendocardial ischemia. 3. Overall left ventricular systolic function is normal without regional wall motion abnormalities, LVEF=76%. 4. No EKG changes with Lexiscan infusion. Nicky Valdes MD (Electronically Signed) Final Date: 17 October 2021 11:46 S
--- NOTE | 2021-10-17 00:59 | ECG_ITS ---
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 Interpretive Statements NAME OF STUDY: LEXISCAN SESTAMIBI STRESS TEST INDICATION: Chest Pain, HX of CAD PROCEDURE: At the baseline, the blood pressure was 111/71 mmHg, oxygen saturation 83% with a heart rate of 54 bpm. The electrocardiogram showed normal sinus rhythm, normal axis with normal ST-T's. The Lexiscan was infused over a period of 20 seconds. A total of 0.4 milligrams of Lexiscan was infused. The stress phase was continued for a total of 5 minutes. Heart rate at the end of the stress phase was 93 bpm, oxygen saturation 95% with a blood pressure of 123/73 mmHg. The EKG at the peak infusion revealed sinus rhythm with no significant ST-T wave changes. The study was terminated due to protocol completion. Sestamibi was injected 20 seconds after the Lexiscan infusion. Blood pressure at the end of the recovery phase was 123/73 mmHg, oxygen saturation of 93% with a heart rate of 69 beats per minute. CONCLUSION: 1. Normal EKG response to LexiScan infusion. 2. No LexiScan induced chest pain or cardiac arrhythmia. 3. Normal blood pressure and heart rate response. 4. Sestamibi/sestamibi perfusion scan pending; see separate report. Electronically Signed On 10-17-2021 11:37:20 CDT by Nicky Valdes M.D. [email or web address]/[id number]
[2021-10-17] MEDS: regadenoson 0.4 Mg/5 ml Syringe IVP (07:26)
[2021-10-17 08:14] LABS: Thyroid Stimulating Hormone 3.35 uIU/mL (0.27-4.20)
[2021-10-17] MEDS: pantoprazole DR 40 mg Tablet PO (08:56)
[2021-10-17] MEDS: aspirin 81 mg EC Tablet PO (08:56)
[2021-10-17] MEDS: atorvastatin 40 mg Tablet PO (08:56)
--- NOTE | 2021-10-17 11:09 | P.DS_ITS ---
Discharge Providers Date of Admission: 10/16/21 19:14 Date of Discharge: October 17, 2021 Attending Provider at Admission: Tala Velazquez MD Attending Provider at Discharge: Bautista Castrejon MD Diagnoses at Discharge Discharge Diagnosis (1) Chest pain: Status: Acute (2) Bradycardia: Status: Acute Reason for Visit Reason for Visit: Chest Pain, Arm pain Hospital Course Hospital Course Pt was admitted for evaluation of syncopal event and chest pain. Orthostatic not done. STress test unremarkable. Heart rate has been above 60s. Will dc him with event monitor. Added aspirin and lisinopril for HTN. DImer negative. TSH NORMAL. Echo reoprt is pedning Physical Exam Narrative: Non focal neuro exam S1s2 abd soft RRR EOMI PERRLA Pleasant and not in distress at the time of discharge Discharge Data Studies Completed and Pending Completed Studies During Hospitalization Category Date Time Status CXRP [XR chest 1V portable [id number]] Stat Exams 10/16/21 17:56 Completed Cardiac Stress Test MIBI [Sestamibi Stress Test Request Exams 10/17/21 00:59 Draft ] Routine Pending at discharge Category Date Time Status NM shamir perf SPECT r/s* [id number] Routine Nuc Med 10/17/21 00:59 Taken CV. echo complete* [id number] Routine Ultrasound 10/17/21 00:58 Taken Radiology Impressions Chest X-Ray 10/16/21 17:56 IMPRESSION: No acute findings. Laboratory Results WBC 7.9 10^3/uL (4.0-10.0) 10/16/21 17: RBC 4.81 10^6/uL (4.1-5.3) 10/16/21 17:23 Hgb 14.5 g/dL (11.7-16.6) 10/16/21 17:23 Hct 42.5 % (42.0-52.0) 10/16/21 17:23 MCV 88.4 fl (80-94) 10/16/21 17:23 MCH 30.1 pg (28.0-34.0) 10/16/21 17:23 MCHC 34.1 g/dL (30.0-36.0) 10/16/21 17:23 RDW 13.0 % (12.1-15.1) 10/16/21 17:23 Plt Count 301 10^3/cmm (130-400) 10/16/21 17:23 MPV 9.7 fL (7.4-10.4) 10/16/21 17:23 Neut % (Auto) 54.7 % 10/16/21 17:23 Lymph % (Auto) 35.8 % 10/16/21 17:23 [place] % (Auto) 5.8 % 10/16/21 17:23 Eos % (Auto) 3.2 % 10/16/21 17:23 Baso % (Auto) 0.4 % 10/16/21 17:23 Neut # (Auto) 4.32 10^3/uL (1.8-7.7) 10/16/21 17: Lymph # (Auto) 2.8 10^3/uL (0.8-4.8) 10/16/21 17:23 [place] # (Auto) 0.5 10^3/uL (0.2-0.9) 10/16/21 17: Eos # (Auto) 0.3 10^3/uL (0.0-0.8) 10/16/21 17:23 Baso # (Auto) 0.0 10^3/uL (0.0-0.1) 10/16/21 17: Nucleated RBC % (auto) 0 % 10/16/21 17: Nucleated RBCs # 0.0 /100WBC 10/16/21 17:23 D-Dimer <= 0.27 ug/mIFEU (0-0.59) 10/16/21 20:18 Sodium 139 mmol/L (136-145) 10/16/21 17:23 Potassium 3.9 mmol/L (3.5-5.1) 10/16/21 17:23 Chloride 102 mmol/L (98-107) 10/16/21 17:23 Carbon Dioxide 27 mmol/L (22-29) 10/16/21 17:23 Anion Gap 13.9 (5-19) 10/16/21 17:23 BUN 6 mg/dL (6-20) 10/16/21 17:23 Creatinine 0.8 mg/dL (0.7-1.2) 10/16/21 17:23 GFR Calculation 104.1 mL/min (90-130) 10/16/21 17:23 Glucose 96 mg/dL (65-115) 10/16/21 17:23 Estimat Average Glucose 120 10/16/21 23:22 Hemoglobin A1c 5.8 % (4.0-6.0) 10/16/21 23: Calculated Osmolality 285 mOsm/kg (285-295) 10/16/21 17:23 Calcium 9.2 mg/dL (8.5-10.5) 10/16/21 17:23 Magnesium 1.9 mg/dL (1.7-2.3) 10/16/21 23: Total Bilirubin 0.4 mg/dL (0.15-1.2) 10/16/21 17:23 AST 17 U/L (0-40) 10/16/21 17: ALT 16 U/L (0-41) 10/16/21 17:23 Alkaline Phosphatase 70 IU/L (40-130) 10/16/21 17:23 Troponin T Baseline 6 ng/L (0-15) 10/16/21 17:23 Troponin T 120 Minute 6.00 ng/L (0-15) 10/16/21 19:04 Delta Troponin T 0 ABS# (0-10) 10/16/21 19:04 Troponin T Hi Sens 6Hr 6.00 ng/L (0-15) 10/16/21 23:22 Troponin T Hi Sens 6Hr Delta 0 ng/L (0-12) 10/16/21 23:22 Total Protein 7.0 g/dL (6.6-8.7) 10/16/21 17:23 Albumin 4.3 g/dL (3.5-5.2) 10/16/21 17:23 Globulin 2.7 g/dL (1.3-4.6) 10/16/21 17:23 Triglycerides 174 mg/dL (0-150) H 10/16/21 23:22 Cholesterol 163 mg/dL (0-200) 10/16/21 23:22 LDL Cholesterol, Calc 86 mg/dL (50-129) 10/16/21 23: HDL Cholesterol 42 mg/dL (60-100) L 10/16/21 23:22 LDL/HDL Ratio 2.05 RATIO (0.00-3.22) 10/16/21 23:22 Cholesterol/HDL Ratio 3.88 mg/dL (1.0-5.00) 10/16/21 23:22 TSH 3.35 uIU/mL (0.27-4.20) 10/16/21 23:22 Vitals Last Vital Signs Temp 98.1 F 10/17/21 09:24 Pulse 71 10/17/21 11:02 Resp 16 10/17/21 09:24 BP 147/89 10/17/21 09:24 Pulse Ox 97 10/17/21 11:02 Discharge Plan Discharge Patient Disposition: Home Condition: Stable Prescriptions: New aspirin 81 mg Tablet,Delayed Release (Dr/Ec) 81 mg PO DAILY Qty: 30 0RF lisinopril 10 mg tablet 10 mg PO DAILY Qty: 30 0RF Discharge Orders: Discharge Order (Routine); Ordered 10/17/21 Ordered By: Bautista Castrejon Discharge Diet: Cardiac Discharge Activity: Increase activity as tolerated Patient Instructions: Opioid Safety Discharge Attestations Time Spent in Discharge Care*: less than 30 min Quality Metrics Clinical Quality Measures [ No reported AMI, CVA or VTE this stay] Coding Level of Care Code Acute Chg FW DC note Diagnoses Chest pain R07.9 Bradycardia R00.1
[2021-10-17] MEDS: acetaminophen 325 mg Tablet 650 MG PO (11:29)
--- NOTE | 2021-10-17 12:05 | PC.CHAP ---
Pastoral Care Encounter/Spiritual Assessment Type of Contact [] Declined relocation commissioner visit [] Patient/Family/Request visit [] Outpatient visit [] Follow-up visit [] Physician referral [] Code/Alert [x] Routine visit [] Staff referral [] Actively dying [] Patient sleeping [] Family support [] [] Out of room [] Palliative care [] [] Receiving care in room [] Pre-surgical visit [] Trauma [] Long length of stay [] ICU visit [] Other: Relational/Emotional Strength [x] Patient feels connected with others/family/visitors/staff [] Distress [] Loneliness/isolation [] Abandonment Spirituality of Patient [x] Person of Radha [x] Attends Oriental Orthodox of their Radha [x] Believes in Prayer [x] Reads Bible or Church materials [] There are Spiritual issues to be addressed Director Of Acquisition Marketing Interventions [x] Prayer x[] Active listening [x] Non-anxious presence [x] Spiritual/emotional support [] Crisis/trauma care [] Spiritual counseling [] Bereavement support [] Provided bereavement packet [] Provided Bible/devotional materials [] Provided toy/stuffed animal, coloring book to patient or family member [] Provided Communion [] Anointing/[place] [] Salvation [x] Completed spiritual assessment [] Other: Impact on Illness or Injury [] Angry [] Fearful [] Anxious [] Often cries [] Exhaustion [] Unable to work [] Unable to attend roman catholic [] Unable to walk/stand [] Unable to read [] Unable to drive [] Unable to eat/drink [] Unable to sleep [] Unable to be with family [] Patient intubated [] Other: Summary Time spent with patient 10 min
--- NOTE | 2021-10-17 15:09 | PC.NURSE ---
dc'd pts piv, reviewed discharge instructions. pt verbalized understanding, monitor to be placed at appointment. rx sent to pharmacy. no further questions from patient. left to private vehicle with son and father.
== END 2021-10-17 15:08 | disposition home or self-care (01) ==
LOC: ER 19:20 → MEDSURG 20:22
PROVIDERS: Family Medicine; Admitting Provider Student in an Organized Health Care Education/Training Program; Emergency Provider Emergency Medicine; Visit Provider Internal Medicine
DX: R07.89 Other chest pain (principal); R00.1 Bradycardia, unspecified; I10 Essential (primary) hypertension; I25.10 Atherosclerotic heart disease of native coronary artery without angina pectoris; F17.220 Nicotine dependence, chewing tobacco, uncomplicated
CPT/HCPCS: 71045; 78452; 80053; 80061; 83036; 83735; 84443; 84484; 85025; 85378; 93005; 93017; 93306; 96374; 96375; 99285; A9500; G0378; J1170; J2270; J2405; J2785

== ENCOUNTER → 2021-10-26 08:54 | Outpatient (BNVA) | payer MEDICAID, SELFPAY | PROVIDERS: Visit Provider Nurse Practitioner Family | DX: Z20.822 Contact with and (suspected) exposure to COVID-19 (principal); J06.9 Acute upper respiratory infection, unspecified; J40 Bronchitis, not specified as acute or chronic; R05.9 Cough, unspecified | CPT/HCPCS: 80053; 85007; 85027; 87635 ==

== ENCOUNTER → 2021-11-01 10:10 | Outpatient (BNVA) | payer MEDICAID, SELFPAY | PROVIDERS: Visit Provider Internal Medicine | DX: R00.1 Bradycardia, unspecified (principal) | CPT/HCPCS: 93270 ==

== ENCOUNTER → 2021-12-12 11:23 | Outpatient (BNVA) | payer MEDICAID, SELFPAY | PROVIDERS: Visit Provider Internal Medicine | DX: R55 Syncope and collapse (principal); I10 Essential (primary) hypertension; I25.10 Atherosclerotic heart disease of native coronary artery without angina pectoris; Z87.891 Personal history of nicotine dependence | CPT/HCPCS: 93005; 99203; 99204 ==

== ENCOUNTER 2022-04-03 13:18 | Emergency (ER) | payer MEDICAID, SELFPAY ==
[2022-04-03 13:31] VITALS: PULSE 103; RESP 17; TEMP 37.1; O2SAT 98; BMI 31.3
--- NOTE | 2022-04-03 13:51 | XR_ITS ---
WS: [id number] Left elbow, 3 views, 04/03/2022 Clinical Data: fall with elbow pain Comparison: None. Findings: No fractures or dislocations are seen. The radial head is normal. The soft tissues are unremarkable. XR/XR elbow LT min 3V* [id number] Impression: Negative left elbow.
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
[2022-04-03] MEDS: ketorolac 60 mg/2 mL INJ IM (14:47)
== END 2022-04-03 14:49 | disposition home or self-care (01) ==
PROVIDERS: Emergency Provider Nurse Practitioner Family
DX: S50.02XA Contusion of left elbow, initial encounter (principal); Z79.82 Long term (current) use of aspirin; Z87.891 Personal history of nicotine dependence; I25.10 Atherosclerotic heart disease of native coronary artery without angina pectoris; W19.XXXA Unspecified fall, initial encounter
CPT/HCPCS: 73080; 96372; 99284; J1885

== ENCOUNTER 2022-08-03 21:02 | Emergency (ER) | payer MEDICAID, SELFPAY ==
[2022-08-03 21:12] VITALS: BP 128/85; PULSE 109; RESP 22; TEMP 36.6; O2SAT 97; BMI 31.9
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
[2022-08-03 23:02] VITALS: RESP 16
[2022-08-03] MEDS: HYDROmorphone 1 mg/mL INJ 1 mL 2 MG IM (23:02)
[2022-08-03] MEDS: ondansetron 2 mg/ML SDV 2 mL 4 MG PO (23:02)
[2022-08-03 23:15] VITALS: PULSE 77; RESP 18; O2SAT 92
[2022-08-04] VITALS: PULSE 65; O2SAT 96
[2022-08-04 00:16] VITALS: PULSE 82; O2SAT 97
== END 2022-08-04 00:17 | disposition home or self-care (01) ==
PROVIDERS: Emergency Provider Emergency Medicine; PCP Internal Medicine
DX: S70.01XA Contusion of right hip, initial encounter (principal); S50.12XA Contusion of left forearm, initial encounter; Z79.82 Long term (current) use of aspirin; I25.10 Atherosclerotic heart disease of native coronary artery without angina pectoris; Z87.891 Personal history of nicotine dependence; V89.2XXA Person injured in unspecified motor-vehicle accident, traffic, initial encounter
CPT/HCPCS: 73090; 73552; 96372; 99284; J1170; J2405

== ENCOUNTER 2022-09-28 05:52 | Outpatient (CLI) | payer MEDICAID, SELFPAY ==
[2022-09-28] MEDS: cephALEXin 500 mg Capsule 2000 MG PO (06:30)
[2022-09-28 06:57] VITALS: BP 118/74; PULSE 75; RESP 16; TEMP 37.1; O2SAT 99
[2022-09-28] MEDS: lidocaine-epi 1% 20 mL INJ INJECTION (07:10)
--- NOTE | 2022-09-28 07:14 | W.PM.OPSUD ---
Surgery/Procedure H&P Update DATE OF PROCEDURE: September 28, 2022 DATE H&P PERFORMED: 09/11/22 PREOP DIAGNOSIS: Syncope PRIMARY INDICATION FOR PROCEDURE: Syncope PLANNED PROCEDURE: Operation Date: 09/28/22 07:00 Proposed Procedures [place] [id number], [R55](Not Applicable) - Nicky Valdes MD PATIENT REASSESSED PRIOR TO SEDATION, WITH NO CHANGE NOTED: Yes PHYSICAL EXAM: alert, oriented x 3, clear to auscultation bilaterally and regular rate & rhythm AIRWAY EVAL/ANESTHESIA PLAN: Local Anesthesia, Risks, benefits & alternatives of sedation and/or procedure discussed and Patient agrees to continue as planned
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
[2022-09-28 08:23] VITALS: BP 118/75; PULSE 76; RESP 18; TEMP 37; O2SAT 99
== END 2022-09-28 05:53 | disposition home or self-care (01) ==
LOC: CCL 05:52
PROVIDERS: PCP Internal Medicine; Visit Provider Internal Medicine Cardiovascular Disease
PROC: (CPT 33285; principal; 2022-09-28 07:00)
DX: R55 Syncope and collapse (principal); I10 Essential (primary) hypertension
CPT/HCPCS: 33285; C1764; C1769

== ENCOUNTER 2022-10-14 14:18 | Emergency (ER) | payer MEDICAID, SELFPAY ==
[2022-10-14 14:20] VITALS: BP 142/91; PULSE 75; RESP 18; TEMP 36.6; O2SAT 98; BMI 32.8
--- NOTE | 2022-10-14 14:23 | ECG_ITS ---
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 Measurements Intervals [place] Rate: 72 P: 42 [place]: 153 QRS: 10 QRSD: 81 T: 60 QT: 345 QTc: 380 Interpretive Statements SINUS RHYTHM WITH SINUS ARRHYTHMIA Compared to ECG 10/17/2021 02:30:58 Sinus bradycardia no longer present Electronically Signed On 10-14-2022 15:45:03 CDT by Otoniel Rivera M.D. [email or web address] bil[facility]iW[facility] Ringoh[email or web address].[employer]/[email or web address]/[id number] f
--- NOTE | 2022-10-14 14:23 | XRR_ITS ---
PROCEDURE INFORMATION: Exam: XR Chest Exam date and time: 10/14/2022 2:48 PM Age: 47 years old Clinical indication: Cough and dyspnea; Additional info: Dyspnea/cough TECHNIQUE: Imaging protocol: Radiologic exam of the chest. Views: 1 view. COMPARISON: CR XR chest 1V portable [id number] 10/16/2021 6:02 PM FINDINGS: Lungs: Unremarkable. No consolidation. Pleural spaces: Unremarkable. No pleural effusion. No pneumothorax. Heart/Mediastinum: Unremarkable. No cardiomegaly. There is a loop recorder projected over the left chest. Bones/joints: No acute abnormality. XR/XR chest 1V portable [id number] IMPRESSION: No acute findings.
[2022-10-14 14:39] LABS: Basophils % 0.4 %; Eosinophils # 0.2 10^3/uL (0.0-0.8); Eosinophils % 2.3 %; Hematocrit 46.3 % (42.0-52.0); Hemoglobin 15.2 g/dL (11.7-16.6); Lymphocytes # 2.3 10^3/uL (0.8-4.8); Lymphocytes % 25.6 %; Mean Corpuscular HGB Conc 32.8 g/dL (30.0-36.0); Mean Corpuscular Hemoglobin 30.1 pg (28.0-34.0); Mean Corpuscular Volume 91.7 fl (80-94); Mean Platelet Volume 8.9 fL (7.4-10.4); Monocytes # 0.5 10^3/uL (0.2-0.9); Monocytes % 5.4 %; Neutrophils # 5.99 10^3/uL (1.8-7.7); Nucleated Red Blood Cells % 0 %; Platelet Count 344 10^3/cmm (130-400); Red Blood Count 5.05 10^6/uL (4.1-5.3); Red Cell Distribution Width 13.2 % (12.1-15.1); White Blood Count 9.1 10^3/uL (4.0-10.0)
--- NOTE | 2022-10-14 14:45 | W.ED.CHESTPA ---
HPI - Chest Pain General: Chief Complaint: Chest Pain Stated Complaint: CHEST PAIN Time Seen by Provider: 10/14/22 14:21 Source: patient Mode of arrival: EMS History of Present Illness: 47-year-old male presents emergency room complaining of chest pain. He states is related when he is doing activities such as watering. If he stops it gets better its been going on for the last several days. Patient states he has had several heart attacks in the past but no intervention. I did see him previously reviewed his chart again in 2018 he had some 20 to 30% lesions in the LAD that otherwise were unremarkable subsequently he has had a stress test which was negative. He recently had a syncopal episode and he has a loop recorder implanted after cardiac event monitor was negative. Chest pain is very reproducible with palpation across the anterior chest wall. MD complaint: chest pain Onset (ago): day(s) Timing of current episode: episodic Prior episodes: Yes Onset: during exertion Pain location: substernal Pain radiation: none Quality: sharp Relieving factors: nothing Exacerbating factors: nothing Associated symptoms: Reports palpitations and syncope (Previously); Deny abdominal pain, diaphoresis, dyspnea, fever(s), leg edema, nausea, sense of impending doom or vomiting Treatment prior to arrival: aspirin Review of Systems Const: Denies: fever(s), chills or diaphoresis ENMT: Denies: throat pain, ear or mastoid pain, nasal discharge or nasal congestion Card: Reports: chest pain, palpitations and syncope (Previously); Denies: irregular heart rhythm or edema Resp: Denies: dyspnea GI: Denies: abdominal pain, nausea or vomiting : Denies: flank pain, dysuria, urinary frequency or urinary urgency Skin/Breast: Denies: rash or pruritus PFS ED PFSH: Medical History Coronary artery disease Implantable loop recorder present Family History Mother Hypertension Heart attack Father Hypertension Social History Smoking and tobacco status: former smoker Alcohol intake: never Substance/Drug Use: never Adopted: No Lives independently: Yes Household members: spouse Housing: Manufactured/Mobile home Marital status: Number of children: 1 Highest education level completed: High School Graduate service: No Current occupational status: employed Pets and animals: Yes Current gender identity: Male Physical Exam Const: GENERAL APPEARANCE: cooperative and comfortable ORIENTATION/CONSCIOUSNESS: Yes awake, Yes oriented to person, Yes oriented to place and Yes oriented to time HENMT: COMMON NORMALS: normocephalic, atraumatic and hearing grossly normal bilaterally HEAD & SCALP: normocephalic and atraumatic Chest: OTHER: Reproducible chest pain with palpation along the left lower sternal border. Resp: COMMON NORMALS: normal respiratory effort, No retractions, No use of accessory muscles and clear to auscultation bilaterally AUSCULTATION: clear to auscultation bilaterally Cardio: COMMON NORMALS: regular rate, regular rhythm and No murmurs present (Cardio) RATE: regular rate RHYTHM: regular rhythm GI: COMMON NORMALS: Soft to palpation and No hepatosplenomegaly present AUSCULTATION: Yes normoactive bowel sounds PALPATION: Yes Soft to palpation, No Tenderness to palpation present (GI), No Guarding due to palpation present (GI) and Yes No hepatosplenomegaly present Extremity: COMMON NORMALS: normal to inspection, capillary refill normal, no clubbing, cyanosis or edema, no calf tenderness and no pedal edema Neuro: SENSORIUM/ORIENTATION: Yes oriented to person, Yes oriented to place and Yes oriented to time Skin: COMMON NORMALS: no rashes or lesions noted GENERAL SKIN EXAM: no rashes or lesions noted Course Vital Signs: Vital signs: Vital Signs Temperature 97.9 F 10/14/22 14:20 Pulse Rate 76 10/14/22 15:15 Respiratory Rate 18 10/14/22 15:15 Blood Pressure 132/88 10/14/22 15:15 Pulse Oximetry 98 10/14/22 15:15 Oxygen Delivery Me thod Room Air 10/14/22 14:20 MDM - Chest Pain Medical Decision Making Chest pain has been going on for several days no EKG changes normal troponin. Chest pain is reproducible with palpation. Patient had angiography in 2018 that showed noncritical coronary disease and stress test last year that was also negative. Discharge patient home have him follow-up with cardiology. Medical Records I reviewed the patient's medical records. Lab Data I reviewed the patient's lab results. 10/14/22 14:32 10/14/22 14:32 Radiology Impressions Chest X-Ray 10/14/22 14:23 IMPRESSION: No acute findings. Laboratory Results WBC 9.1 10^3/uL (4.0-10.0) 10/14/22 14: RBC 5.05 10^6/uL (4.1-5.3) 10/14/22 14:32 Hgb 15.2 g/dL (11.7-16.6) 10/14/22 14:32 Hct 46.3 % (42.0-52.0) 10/14/22 14: MCV 91.7 fl (80-94) 10/14/22 14:32 MCH 30.1 pg (28.0-34.0) 10/14/22 14: MCHC 32.8 g/dL (30.0-36.0) 10/14/22 14: RDW 13.2 % (12.1-15.1) 10/14/22 14:32 Plt Count 344 10^3/cmm (130-400) 10/14/22 14:32 MPV 8.9 fL (7.4-10.4) 10/14/22 14:32 Neut % (Auto) 66.0 % 10/14/22 14:32 Lymph % (Auto) 25.6 % 10/14/22 14:32 [place] % (Auto) 5.4 % 10/14/22 14:32 Eos % (Auto) 2.3 % 10/14/22 14:32 Baso % (Auto) 0.4 % 10/14/22 14:32 Neut # (Auto) 5.99 10^3/uL (1.8-7.7) 10/14/22 14:32 Lymph # (Auto) 2.3 10^3/uL (0.8-4.8) 10/14/22 14:32 [place]ell # (Auto) 0.5 10^3/uL (0.2-0.9) 10/14/22 14:32 Eos # (Auto) 0.2 10^3/uL (0.0-0.8) 10/14/22 14:32 Baso # (Auto) 0.0 10^3/uL (0.0-0.1) 10/14/22 14:32 Nucleated RBC % (auto) 0 % 10/14/22 14:32 Nucleated RBCs # 0.0 /100WBC 10/14/22 14:32 Sodium 139 mmol/L (136-145) 10/14/22 14:32 Potassium 4.3 mmol/L (3.5-5.1) 10/14/22 14:32 Chloride 103 mmol/L (98-107) 10/14/22 14:32 Carbon Dioxide 24 mmol/L (22-29) 10/14/22 14:32 Anion Gap 16.3 (5-19) 10/14/22 14:32 BUN 14 mg/dL (6-20) 10/14/22 14:32 Creatinine 0.8 mg/dL (0.7-1.2) 10/14/22 14:32 GFR Calculation 103.6 mL/min (90-130) 10/14/22 14:32 Glucose 111 mg/dL (65-115) 10/14/22 14:32 Calculated Osmolality 289 mOsm/kg (285-295) 10/14/22 14:32 Calcium 9.3 mg/dL (8.5-10.5) 10/14/22 14:32 Total Bilirubin 0.4 mg/dL (0.15-1.2) 10/14/22 14:32 AST 12 U/L (0-40) 10/14/22 14:32 ALT 13 U/L (0-41) 10/14/22 14:32 Alkaline Phosphatase 71 U/L (40-130) 10/14/22 14:32 Troponin T Baseline 6 ng/L (0-15) 10/14/22 14:32 Total Protein 7.2 g/dL (6.6-8.7) 10/14/22 14:32 Albumin 4.3 g/dL (3.5-5.2) 10/14/22 14:32 Globulin 2.9 g/dL (1.3-4.6) 10/14/22 14:32 Discharge Plan Discharge Patient Disposition: Home Clinical Impression: Acute chest wall pain, Implantable loop recorder present, Hypertension Condition: Stable Prescriptions: No Action aspirin 81 mg tablet,delayed release (DR/EC) 81 mg PO .THREE TIMES A WEEK lisinopril 10 mg tablet 10 mg PO QA Discharge Orders: Discharge ED (Routine); Ordered 10/14/22 Ordered By: Ed Sweeney Referrals: Eduardo Lee MD [Primary Care Provider] - Discharge Diet: Usual diet Discharge Activity: Resume usual activity Patient Instructions: Opioid Safety, Pain Management Activity Restrictions/Additional Instructions: You were seen today for chest pain. Your cardiac enzymes and EKG did not show any acute changes your stress test in September 2021 was normal in 2018 you had a cardiac catheterization that showed 20 to 30% lesions in the LAD that did not require any intervention. Recommend that you follow-up with a bulk receiver next week. 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
[2022-10-14 14:55] LABS: Alanine Aminotransferase 13 U/L (0-41); Albumin Level 4.3 g/dL (3.5-5.2); Alkaline Phosphatase 71 U/L (40-130); Anion Gap 16.3 (5-19); Aspartate Amino Transferase 12 U/L (0-40); Blood Urea Nitrogen 14 mg/dL (6-20); Calcium 9.3 mg/dL (8.5-10.5); Carbon Dioxide 24 mmol/L (22-29); Chloride 103 mmol/L (98-107); Globulin 2.9 g/dL (1.3-4.6); Glomerular Filtration Rate 103.6 mL/min (90-130); Glucose 111 mg/dL (65-115); Osmolality Calculated 289 mOsm/kg (285-295); Potassium 4.3 mmol/L (3.5-5.1); Sodium 139 mmol/L (136-145); Total Bilirubin 0.4 mg/dL (0.15-1.2); Total Protein 7.2 g/dL (6.6-8.7)
[2022-10-14 14:56] LABS: Troponin(5th) Baseline 6 ng/L (0-15)
[2022-10-14 15:00] VITALS: BP 132/88; PULSE 81; RESP 16; O2SAT 97
[2022-10-14 15:15] VITALS: BP 132/88; PULSE 76; RESP 18; O2SAT 98
== END 2022-10-14 15:16 | disposition home or self-care (01) ==
PROVIDERS: Emergency Provider Family Medicine; PCP Internal Medicine
DX: R07.89 Other chest pain (principal); I10 Essential (primary) hypertension; Z96.89 Presence of other specified functional implants; Z87.891 Personal history of nicotine dependence; I25.10 Atherosclerotic heart disease of native coronary artery without angina pectoris
CPT/HCPCS: 71045; 80053; 84484; 85025; 93005; 99285

== ENCOUNTER 2023-01-24 07:02 | Day surgery (SDC) | payer MEDICAID, SELFPAY ==
--- NOTE | 2023-01-24 10:30 | ECG_ITS ---
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 Measurements Intervals [place] Rate: 63 P: 42 [place]: 160 QRS: 7 QRSD: 85 T: 33 QT: 369 QTc: 378 Interpretive Statements SINUS RHYTHM Compared to ECG 10/14/2022 14:21:57 Sinus arrhythmia no longer present Electronically Signed On 01-24-2023 15:56:53 CDT by Rui Rendon M.D. [id number]
[2023-01-24 10:37] LABS: Add Urine Microscopic? NO; Charge for UA Resulting for Rev
--- NOTE | 2023-01-24 10:41 | ANES.PREANE2 ---
Pre-Anesthetic Assessment Height/Weight: Height 1.7 m Operation Date: 01/29/23 07:00 Proposed Procedures p Pacemaker Insertion [id number],I45.5(Not Applicable) - Vance Cole MD Familial anesthetic complications: None Social Tobacco Exam alert, oriented x 3, clear to auscultation bilaterally and regular rate & rhythm Airway Mallampati: Class II Dentition: full CV/HEM Arrythmia (sinus pauses), Coronary Artery Disease (stents not on blood thinners) and Hypertension perfusion scan 2021 ?IMPRESSIONS ?1. Myocardial perfusion imaging is normal.? Attenuation artifact noted in mid ?anteroseptal wall. ?2. Transient ischemic dilation index of 1.2.? This may represent hypertensive ?response/subendocardial ischemia. ?3. Overall left ventricular systolic function is normal without regional wall ?motion abnormalities, LVEF=76%. ?4. No EKG changes with Lexiscan infusion. GI Gastroesophageal Reflux Disease Anesthetic Plan ASA status: 4 Anesthesia: MAC Risk of > 500 ml blood loss (7ml/kg in children): No Medications/Allergies Home Medications Medication Instructions Recorded Confirmed Last Taken Type aspirin 81 mg tablet,delayed 162 mg PO DAILY 10/14/22 01/24/23 01/23/23 History release lisinopril 10 mg tablet 10 mg PO QAM 10/14/22 01/24/23 01/24/23 History Allergies Allergy/AdvReac Type Severity Reaction Status Date / Time No Known Allergies Allergy Verified 01/15/23 13:43 [facility] Anesthesia Medical History Coronary artery disease Implantable loop recorder present Family History Mother Hypertension Heart attack Father Hypertension Social History Smoking and tobacco status: former smoker Alcohol intake: never Substance/Drug Use: never Adopted: No Lives independently: Yes Household members: spouse Housing: Manufactured/Mobile home Marital status: Number of children: 1 Highest education level completed: High School Graduate service: No Current occupational status: employed Pets and animals: Yes Current gender identity: Male Data Anesthesia Cardiac Studies: Echocardiogram 10/17/21 Sestamibi Stress Test (Cardiology) 10/17/21 Cardiac Event Monitor 11/01/21
[2023-01-24 10:49] LABS: Basophils % 0.6 %; Eosinophils # 0.2 10^3/uL (0.0-0.8); Hematocrit 42.7 % (37-53); Lymphocytes % 38.3 %; Mean Corpuscular HGB Conc 32.8 g/dL (30-55); Mean Corpuscular Hemoglobin 30.2 pg (27-33); Mean Platelet Volume 9.1 fL (7.4-10.4); Monocytes # 0.3 10^3/uL (0.2-0.9); Monocytes % 5.1 %; Neutrophils # 2.73 10^3/uL (1.8-7.7); Neutrophils % 51.8 %; Nucleated Red Blood Cells % 0 %; Platelet Count 318 10^3/cmm (157-399); Red Blood Count 4.64 10^6/uL (3.85-5.65); Red Cell Distribution Width 13.6 % (12.1-15.1); White Blood Count 5.27 10^3/uL (3.29-11.43)
[2023-01-24 10:59] LABS: Bilirubin Urine Neg (Negative); Blood Urine Neg (Negative); Glucose Urine UA Norm (Normal); Ketones Urine Negative (Negative); Leukocyte Esterase Urine Negative (Negative); Nitrate Urine Negative (Negative); Protein Urine Neg (Negative); Specific Gravity, Urine 1.015 (1.005-1.030); Urine Appearance Clear (CLEAR); Urine Color Light yellow (Yellow); Urobilinogen Urine Norm (Negative); pH Urine 6 (5-7)
[2023-01-24 11:06] LABS: Anion Gap 12.6 (5-19); Blood Urea Nitrogen 11 mg/dL (6-20); Calcium 9.3 mg/dL (8.5-10.5); Carbon Dioxide 28 mmol/L (22-29); Chloride 103 mmol/L (98-107); Glomerular Filtration Rate 103.6 mL/min (90-130); Glucose 88 mg/dL (65-115); Osmolality Calculated 287 mOsm/kg (285-295); Potassium 4.6 mmol/L (3.5-5.1); Sodium 139 mmol/L (136-145)
== END 2023-01-24 07:04 | disposition home or self-care (01) ==
LOC: OR 02-05 07:02
PROVIDERS: Anesthesiology; PCP Internal Medicine; Visit Provider Thoracic Surgery (Cardiothoracic Vascular Surgery)
DX: Z01.818 Encounter for other preprocedural examination (principal)
CPT/HCPCS: 36415; 80048; 81003; 85025; 93005

== ENCOUNTER 2023-02-06 13:29 | Emergency (ER) | payer MEDICAID, SELFPAY ==
--- NOTE | 2023-02-06 13:38 | W.ED.CHESTPA ---
HPI - Chest Pain General: Chief Complaint: Chest Pain Stated Complaint: chest pain Time Seen by Provider: 02/06/23 13:38 History of Present Illness: 47-year-old male presents emergency department with complaints of chest pain that started at approximately 8 AM this morning. He states the chest pain is substernal in nature and radiates to the left shoulder. He states he also had an episode where he passed out earlier today. He states he does see a bonding machine tender here at this hospital and has been scheduled for a pacemaker placement but that has been delayed on 2 occasions. He states he is currently now scheduled for pacemaker placement on the of this month but became very short of breath and diaphoretic this morning with minimal exertion. He states he did have associated nausea without vomiting. He states he has had a history of chest pain with syncopal episodes in the past. He states his current chest discomfort is a chest pressure that he describes as a 5 out of 10 and states that he feels like he cannot catch his breath. He states that nothing seems to make this pain better and nothing seems to make it worse at present. Associated symptoms: Reports nausea, syncope and vomiting Review of Systems General: Reports: 10 or more systems reviewed and unremarkable except in HPI and below Card: Reports: chest pain and syncope GI: Reports: nausea and vomiting [facility] ED PFSH: Medical History Coronary artery disease Implantable loop recorder present Family History Mother Hypertension Heart attack Father Hypertension Social History Smoking and tobacco/nicotine status: former use of tobacco/nicotine Alcohol intake: never Substance/Drug Use: never Adopted: No Lives independently: Yes Household members: spouse Housing: Manufactured/Mobile home Marital status: Number of children: 1 Highest education level completed: High School Graduate service: No Current occupational status: employed Pets and animals: Yes Current gender identity: Male Physical Exam Const: COMMON NORMALS: no acute distress, average body habitus, patient oriented x3 and alert HENMT: COMMON NORMALS: normocephalic, atraumatic and moist oral mucous membranes HEAD & SCALP: normocephalic and atraumatic Eye: COMMON NORMALS: Equal, round and reactive pupils present and EOMs intact bilaterally PUPIL: Yes Equal, round and reactive pupils present Neck/C-Spine: COMMON NORMALS: full ROM, supple and no meningeal signs Chest: COMMONS NORMALS: normal inspection of the chest and normal palpation of entire chest wall Resp: COMMON NORMALS: normal respiratory effort, No retractions and clear to auscultation bilaterally AUSCULTATION: clear to auscultation bilaterally Cardio: COMMON NORMALS: regular rate, regular rhythm, S1 normal heart sound present, S2 normal heart sound present and Peripheral pulses 2+ throughout RATE: regular rate RHYTHM: regular rhythm HEART SOUNDS: S1 normal heart sound present and S2 normal heart sound present PERIPHERAL PULSES: Peripheral pulses 2+ throughout GI: COMMON NORMALS: Soft to palpation and non-tender PALPATION: Yes Soft to palpation Back/Pelvis: COMMON NORMALS: thoracic and lumbar spine normal to inspection and thoraco-lumbar ROM normal Extremity: COMMON NORMALS: normal to inspection, full ROM, capillary refill normal and no pedal edema Neuro: COMMON NORMALS: patient oriented x3 and moves all extremities SENSORIUM/ORIENTATION: Yes alert MENINGEAL SIGNS: Yes no meningeal signs Psych: MOOD & AFFECT: Yes anxious Skin: COMMON NORMALS: no rashes or lesions noted GENERAL SKIN EXAM: no rashes or lesions noted Course Reevaluation(s): Reevaluation #1: Reevaluation of the patient demonstrates no additional syncopal episodes vital signs have been stable while here in the emergency department we are currently awaiting for his second cardiac enzyme. Return of his laboratory values demonstrated positive findings for marijuana substance. Patient does have a family member at bedside and they are conversing without any difficulty. We will continue to monitor and obtain a second cardiac enzyme-troponin T as well as a repeat EKG for evaluation at present the patient is in no acute distress Time: 15:17 Vital Signs: Vital signs: Vital Signs Pulse Rate 78 02/06/23 15:00 Respiratory Rate 18 02/06/23 15:00 Blood Pressure 146/117 02/06/23 13:47 Pulse Oximetry 98 02/06/23 15:00 MDM - Chest Pain Medical Decision Making Physical exam completed and documented, I will obtain a twelve-lead EKG, chest x-ray, provide the patient cardiac dose aspirin given his cardiac presentation and cardiac history. We will obtain a CBC and CMP to evaluate electrolyte abnormality and infection status. We will also obtain a B-type natriuretic peptide as well as cardiac enzymes and evaluate accordingly. Medical Records I reviewed the patient's medical records. Lab Data I reviewed the patient's lab results. 02/06/23 13:55 02/06/23 13:55 Laboratory Results WBC 6.95 10^3/uL (3.29-11.43) 02/06/23 13:55 RBC 5.23 10^6/uL (3.85-5.65) 02/06/23 13:55 Hgb 15.90 g/dL (11.27-16.99) 02/06/23 13:55 Hct 49.2 % (37-53) 02/06/23 13:55 MCV 94.1 fl (82-101) 02/06/23 13:55 MCH 30.4 pg (27-33) 02/06/23 13:55 MCHC 32.3 g/dL (30-55) 02/06/23 13:55 RDW 13.7 % (12.1-15.1) 02/06/23 13:55 Plt Count 358 10^3/cmm (157-399) 02/06/23 13:55 MPV 9.8 fL (7.4-10.4) 02/06/23 13:55 Neut % (Auto) 57.4 % 02/06/23 13:55 Lymph % (Auto) 33.1 % 02/06/23 13:55 [place] % (Auto) 6.9 % 02/06/23 13:55 Eos % (Auto) 1.9 % 02/06/23 13:55 Baso % (Auto) 0.4 % 02/06/23 13:55 Neut # (Auto) 3.99 10^3/uL (1.8-7.7) 02/06/23 13:55 Lymph # (Auto) 2.3 10^3/uL (0.8-4.8) 02/06/23 13:55 [place] # (Auto) 0.5 10^3/uL (0.2-0.9) 02/06/23 13:55 Eos # (Auto) 0.1 10^3/uL (0.0-0.8) 02/06/23 13:55 Baso # (Auto) 0.0 10^3/uL (0.0-0.1) 02/06/23 13:55 Nucleated RBC % (auto) 0 % 02/06/23 13:55 Nucleated RBCs # 0.0 /100WBC 02/06/23 13:55 Sodium 139 mmol/L (136-145) 02/06/23 13:55 Potassium 4.3 mmol/L (3.5-5.1) 02/06/23 13:55 Chloride 100 mmol/L (98-107) 02/06/23 13:55 Carbon Dioxide 26 mmol/L (22-29) 02/06/23 13:55 Anion Gap 17.3 (5-19) 02/06/23 13:55 BUN 8 mg/dL (6-20) 02/06/23 13:55 Creatinine 0.8 mg/dL (0.7-1.2) 02/06/23 13:55 GFR Calculation 103.6 mL/min (90-130) 02/06/23 13:55 Glucose 93 mg/dL (65-115) 02/06/23 13:55 Calculated Osmolality 286 mOsm/kg (285-295) 02/06/23 13:55 Calcium 10.3 mg/dL (8.5-10.5) 02/06/23 13:55 Total Bilirubin 0.9 mg/dL (0.15-1.2) 02/06/23 13:55 AST 18 U/L (0-40) 02/06/23 13:55 ALT 20 U/L (0-41) 02/06/23 13:55 Alkaline Phosphatase 81 U/L (40-130) 02/06/23 13:55 Troponin T Baseline < 6 ng/L (0-15) 02/06/23 13:55 NT-Pro-B Natriuret Pep 36 pg/mL (0-125) 02/06/23 13:55 Total Protein 8.2 g/dL (6.6-8.7) 02/06/23 13:55 Albumin 5.4 g/dL (3.5-5.2) H 02/06/23 13:55 Globulin 2.8 g/dL (1.3-4.6) 02/06/23 13:55 Urine Color Light yellow (Yellow) 02/06/23 14:00 Urine Appearance Clear (CLEAR) 02/06/23 14:00 Urine pH 8 (5-7) H 02/06/23 14:00 Ur Specific Skippers 1.010 (1.005-1.030) 02/06/23 14:00 Urine Protein Neg (Negative) 02/06/23 14:00 Urine Glucose (UA) Norm (Normal) 02/06/23 14:00 Urine Ketones Negative (Negative) 02/06/23 14:00 Urine Blood Neg (Negative) 02/06/23 14:00 Urine Nitrate Negative (Negative) 02/06/23 14:00 Urine Bilirubin Neg (Negative) 02/06/23 14:00 Prot Sulfosalicylic Acd Negative (Negative) 02/06/23 14:00 Urine Urobilinogen Norm mg/dL (Negative) 02/06/23 14:00 Ur Leukocyte Esterase Negative (Negative) 02/06/23 14:00 Urine Opiates Screen Negative ng/mL (Negative) 02/06/23 14:00 Ur Barbiturates Screen Negative ng/mL (Negative) 02/06/23 14:00 Ur Phencyclidine Scrn Negative ng/mL (Negative) 02/06/23 14:00 Ur Amphetamines Screen Negative ng/mL (Negative) 02/06/23 14:00 U Benzodiazepines Scrn Negative ng/mL (Negative) 02/06/23 14:00 Urine Cocaine Screen Negative ng/mL (Negative) 02/06/23 14:00 U Marijuana (THC) Screen Positive ng/mL (Negative) H 02/06/23 14:00 All radiology interpretation(s) finalized by discharge Discharge Plan Discharge Patient Disposition: Left Against Medical Advice Clinical Impression: Chest pain Condition: Stable Prescriptions: No Action aspirin 81 mg tablet,delayed release (DR/EC) 162 mg PO DAILY lisinopril 10 mg tablet 10 mg PO QAM Referrals: Eduardo Lee MD [Primary Care Provider] - Coding Level of Care Code 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
--- NOTE | 2023-02-06 13:39 | XR_ITS ---
WS: [id number] Portable AP upright chest, 02/06/2023 Clinical Data: chest pain Comparison: Portable chest, 10/14/2022 Findings: No nodules, masses or effusions are seen. The heart is normal. The pulmonary vascularity is not increased. No pneumonia or pneumothorax is seen. There is a portable recording device overlying the left chest. There are monitor leads on the chest wall. Impression: Negative chest.
--- NOTE | 2023-02-06 13:39 | ECG_ITS ---
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 Measurements Intervals [place] Rate: 81 P: 42 [place]: 154 QRS: -8 QRSD: 85 T: 54 QT: 342 QTc: 398 Interpretive Statements SINUS RHYTHM WITH SINUS ARRHYTHMIA POSSIBLE LEFT ATRIAL ENLARGEMENT [-0.1mV P-WAVE IN V1/V2] POSSIBLE RIGHT VENTRICULAR CONDUCTION DELAY [RSR (QR) IN V1/V2] Compared to ECG 01/24/2023 10:30:02 No significant changes Electronically Signed On 02-06-2023 19:36:48 CDT by Lupe Mueller M.D. [id number]
[2023-02-06 13:47] VITALS: BP 146/117; PULSE 76; RESP 22; O2SAT 98
[2023-02-06] MEDS: aspirin 81 mg Chew Tablet 324 MG PO (14:05)
[2023-02-06 14:12] LABS: Basophils % 0.4 %; Eosinophils # 0.1 10^3/uL (0.0-0.8); Eosinophils % 1.9 %; Hematocrit 49.2 % (37-53); Lymphocytes # 2.3 10^3/uL (0.8-4.8); Lymphocytes % 33.1 %; Mean Corpuscular HGB Conc 32.3 g/dL (30-55); Mean Corpuscular Hemoglobin 30.4 pg (27-33); Mean Corpuscular Volume 94.1 fl (82-101); Mean Platelet Volume 9.8 fL (7.4-10.4); Monocytes # 0.5 10^3/uL (0.2-0.9); Monocytes % 6.9 %; Neutrophils # 3.99 10^3/uL (1.8-7.7); Neutrophils % 57.4 %; Nucleated Red Blood Cells % 0 %; Platelet Count 358 10^3/cmm (157-399); Red Blood Count 5.23 10^6/uL (3.85-5.65); Red Cell Distribution Width 13.7 % (12.1-15.1); White Blood Count 6.95 10^3/uL (3.29-11.43)
[2023-02-06 14:20] LABS: Add Urine Microscopic? NO; Charge for UA Resulting for Rev
[2023-02-06 14:35] LABS: Troponin(5th) Baseline < 6 ng/L (0-15)
[2023-02-06 14:43] LABS: Bilirubin Urine Neg (Negative); Blood Urine Neg (Negative); Glucose Urine UA Norm (Normal); Ketones Urine Negative (Negative); Leukocyte Esterase Urine Negative (Negative); Nitrate Urine Negative (Negative); Protein Urine Neg (Negative); Sulfosalicylic Acid Urine Negative (Negative); Urine Appearance Clear (CLEAR); Urine Color Light yellow (Yellow); Urobilinogen Urine Norm (Negative); pH Urine 8 (5-7)
[2023-02-06 14:45] LABS: Amphetamines Screen Urine Negative (Negative); Barbiturates Screen Urine Negative (Negative); Benzodiazepines Screen Urine Negative (Negative); Cocaine Screen Urine Negative (Negative); Opiate Screen Urine Negative (Negative); PCP Screen Urine Negative (Negative); THC Screen Urine Positive (Negative)
[2023-02-06 14:46] LABS: Alanine Aminotransferase 20 U/L (0-41); Albumin Level 5.4 g/dL (3.5-5.2); Alkaline Phosphatase 81 U/L (40-130); Aspartate Amino Transferase 18 U/L (0-40); Blood Urea Nitrogen 8 mg/dL (6-20); Calcium 10.3 mg/dL (8.5-10.5); Carbon Dioxide 26 mmol/L (22-29); Chloride 100 mmol/L (98-107); Globulin 2.8 g/dL (1.3-4.6); Glomerular Filtration Rate 103.6 mL/min (90-130); Glucose 93 mg/dL (65-115); NT Pro B Type Natriuretic Pept 36 pg/mL (0-125); Osmolality Calculated 286 mOsm/kg (285-295); Sodium 139 mmol/L (136-145); Total Bilirubin 0.9 mg/dL (0.15-1.2); Total Protein 8.2 g/dL (6.6-8.7)
[2023-02-06 14:54] LABS: Anion Gap 17.3 (5-19); Potassium 4.3 mmol/L (3.5-5.1)
[2023-02-06 15:00] VITALS: PULSE 78; RESP 18; O2SAT 98
== END 2023-02-06 15:49 | disposition left against medical advice (07) ==
PROVIDERS: Emergency Provider Internal Medicine; PCP Internal Medicine
DX: R07.9 Chest pain, unspecified (principal); Z79.82 Long term (current) use of aspirin; Z87.891 Personal history of nicotine dependence; I25.10 Atherosclerotic heart disease of native coronary artery without angina pectoris
CPT/HCPCS: 36415; 71045; 80053; 80306; 81003; 83880; 84484; 85025; 93005; 99285

== ENCOUNTER → 2023-06-05 11:28 | Outpatient (BNVA) | payer MEDICAID, SELFPAY | PROVIDERS: PCP Internal Medicine; Visit Provider Nurse Practitioner Family | DX: R05.9 Cough, unspecified (principal); J98.8 Other specified respiratory disorders; R21 Rash and other nonspecific skin eruption | CPT/HCPCS: 87400 ==

== ENCOUNTER 2023-06-13 05:46 | Outpatient (CLI) | payer MEDICAID, SELFPAY ==
[2023-06-13] VITALS (13 sets, daily range): BP systolic 110–135; BP diastolic 75–96; PULSE 60–78; RESP 10–22; TEMP 36.6; O2SAT 96–99; BMI 31.3
[2023-06-13 06:33] LABS: Basophils % 0.7 %; Eosinophils # 0.2 10^3/uL (0.0-0.8); Hematocrit 41.7 % (37-53); Lymphocytes # 2.4 10^3/uL (0.8-4.8); Lymphocytes % 40.4 %; Mean Corpuscular HGB Conc 33.6 g/dL (30-55); Mean Corpuscular Hemoglobin 30.5 pg (27-33); Mean Corpuscular Volume 90.8 fl (82-101); Mean Platelet Volume 9.4 fL (7.4-10.4); Monocytes # 0.4 10^3/uL (0.2-0.9); Monocytes % 6.3 %; Neutrophils # 2.91 10^3/uL (1.8-7.7); Neutrophils % 48.4 %; Nucleated Red Blood Cells % 0 %; Platelet Count 300 10^3/cmm (157-399); Red Blood Count 4.59 10^6/uL (3.85-5.65); Red Cell Distribution Width 13.1 % (12.1-15.1); White Blood Count 6.01 10^3/uL (3.29-11.43)
[2023-06-13 06:54] LABS: Anion Gap 14.3 (5-19); Blood Urea Nitrogen 9 mg/dL (6-20); Calcium 8.5 mg/dL (8.5-10.5); Carbon Dioxide 24 mmol/L (22-29); Chloride 106 mmol/L (98-107); Glomerular Filtration Rate 120.9 mL/min (90-130); Glucose 113 mg/dL (65-115); Osmolality Calculated 289 mOsm/kg (285-295); Potassium 4.3 mmol/L (3.5-5.1); Sodium 140 mmol/L (136-145)
--- NOTE | 2023-06-13 07:06 | PM.HP ---
Providers/Chief Complaint Admitting Physician: MARCIA Mueller MD Primary Care Provider: Eduardo Lee MD Chief Complaint: Z95.818, I45.5, I25.10 History of Present Illness Gideon Lion is a 47 year old male with a history of hypertension, presents with recurrent episodes of syncope. He was found to have prolonged sinus pauses on the implantable cardiac monitoring. For further management of his condition, a permanent pacer implantation was recommended. This patient had a cardiac catheterization in 2018 and was found to have mild coronary artery disease. Currently has no fever or chills. No cough. No unusual shortness of breath. He is not on any medications, that might cause bradycardia. His thyroid functions were within normal limits. Review of Systems Narrative: CONSTITUTIONAL: No fever or chills. EYES: No blurring of vision or other visual disturbances lately. ENT: No hoarseness of voice, auditory disturbances or sore throat. CARDIOVASCULAR: As mentioned above. RESPIRATORY: No significant cough. GASTROINTESTINAL: No hematemesis or melena. GENITOURINARY: No dysuria or hematuria. INTEGUMENTARY: No skin rashes or history of skin cancer. NEURO: No transient ischemic attacks or amaurosis. PSYCHIATRIC: No history of psychosis or major depression. HEMATOLOGIC: No bleeding disorders or significant anemia. ENDOCRINE: No history of polyuria or polydipsia. MUSCULOSKELETAL: No recent joint pain or swelling. ALLERGY/IMMUNOLOGY: As mentioned above. Medications/Allergies Home Medications Medication Instructions Recorded Confirmed Last Taken Type lisinopril 5 mg tablet 5 mg PO QAM #90 tabs 04/25/23 06/12/23 06/13/23 05:00 Rx Allergies Allergy/AdvReac Type Severity Reaction Status Date / Time No Known Allergies Allergy Verified 06/13/23 07:11 PFSH Acute PFSH: Medical History Implantable loop recorder present Coronary artery disease Family History Mother Hypertension Heart attack Father Hypertension Social History Smoking and tobacco/nicotine status: former use of tobacco/nicotine Alcohol intake: never Substance/Drug Use: never Adopted: No Lives independently: Yes Household members: spouse Housing: Manufactured/Mobile home Marital status: Number of children: 1 Highest education level completed: High School Graduate service: No Current occupational status: employed Pets and animals: Yes Current gender identity: Male Physical Exam Narrative: GENERAL: The patient is alert and oriented times three. Not in any acute distress. HEENT: No significant pallor, icterus or lymphadenopathy.Oral cavity: There are no mucous membrane lesions. NECK: Trachea appears to be central. No masses noted. No JVD or thyromegaly appreciated. RESPIRATORY: Chest is symmetrical. No intercostals muscle retraction or any accessory muscle activation. There is no chest wall tenderness. Breath sounds are heard bilaterally. No rales or rhonchi heard. No evidence of any consolidation. The ICM implantation site has no evidence of infection. BREASTS: Deferred. HEART: The heart sounds are normal. No S3 or S4. No significant murmurs. No pericardial rub ABDOMEN: No vessel pulsations or distention. No tenderness. No organomegaly appreciated. Bowel sounds are normally heard. : Deferred. RECTAL: Deferred. LYMPHATIC: No lymphadenopathy noted in the neck. EXTREMITIES: No edema or cyanosis. No clubbing. MUSCULOSKELETAL: No acute joint deformities or swelling SKIN: There are no significant rashes or ecchymosis NEUROPSYCHIATRIC: The patient is alert and oriented x3. Appears to be in a good mood. No tremors or rigidity noted. Data 06/13/23 06:20 06/13/23 06:20 Other Labs: Laboratory Last Values WBC 6.01 10^3/uL (3.29-11.43) 06/13/23 06:20 RBC 4.59 10^6/uL (3.85-5.65) 06/13/23 06:20 Hgb 14.00 g/dL (11.27-16.99) 06/13/23 06:20 Hct 41.7 % (37-53) 06/13/23 06:20 MCV 90.8 fl (82-101) 06/13/23 06:20 MCH 30.5 pg (27-33) 06/13/23 06:20 MCHC 33.6 g/dL (30-55) 06/13/23 06:20 RDW 13.1 % (12.1-15.1) 06/13/23 06:20 Plt Count 300 10^3/cmm (157-399) 06/13/23 06:20 MPV 9.4 fL (7.4-10.4) 06/13/23 06:20 Neut % (Auto) 48.4 % 06/13/23 06:20 Lymph % (Auto) 40.4 % 06/13/23 06:20 [place] % (Auto) 6.3 % 06/13/23 06:20 Eos % (Auto) 4.0 % 06/13/23 06:20 Baso % (Auto) 0.7 % 06/13/23 06:20 Neut # (Auto) 2.91 10^3/uL (1.8-7.7) 06/13/23 06:20 Lymph # (Auto) 2.4 10^3/uL (0.8-4.8) 06/13/23 06:20 [place] # (Auto) 0.4 10^3/uL (0.2-0.9) 06/13/23 06:20 Eos # (Auto) 0.2 10^3/uL (0.0-0.8) 06/13/23 06:20 Baso # (Auto) 0.0 10^3/uL (0.0-0.1) 06/13/23 06:20 Nucleated RBC % (auto) 0 % 06/13/23 06:20 Nucleated RBCs # 0.0 /100WBC 06/13/23 06:20 Sodium 140 mmol/L (136-145) 06/13/23 06:20 Potassium 4.3 mmol/L (3.5-5.1) 06/13/23 06:20 Chloride 106 mmol/L (98-107) 06/13/23 06:20 Carbon Dioxide 24 mmol/L (22-29) 06/13/23 06:20 Anion Gap 14.3 (5-19) 06/13/23 06:20 BUN 9 mg/dL (6-20) 06/13/23 06:20 Creatinine 0.7 mg/dL (0.7-1.2) 06/13/23 06:20 GFR Calculation 120.9 mL/min (90-130) 06/13/23 06:20 Glucose 113 mg/dL (65-115) 06/13/23 06:20 Calculated Osmolality 289 mOsm/kg (285-295) 06/13/23 06:20 Calcium 8.5 mg/dL (8.5-10.5) 06/13/23 06:20 Other data: Chest x-ray from 02/06/2023 Findings: No nodules, masses or effusions are seen. The heart is normal. The pulmonary vascularity is not increased. No pneumonia or pneumothorax is seen. There is a portable recording device overlying the left chest. There are monitor leads on the chest wall. Normal cardiac silhouette with no lung infiltrate A&P Assessment and plan (1) Recurrent syncope: This patient was found to have prolonged sinus pauses on the implantable environmental monitoring technician telemetry. For further management of his condition, he requires a permanent pacer implantation. The risk of bleeding, hematoma, vascular injury, myocardial perforation, pericardial tamponade pneumothorax, infection, renal failure and other concomitant complications were explained in detail. The patient and his understood this well and consented to proceed. Will go ahead and schedule this for today. (2) Coronary artery disease: Patient was found to have mild CAD by angiogram in 2018. He is totally asymptomatic at this point. No evidence of any progression of disease. Qualifiers: Coronary Disease-Associated Artery/Lesion type: [place] artery [place] vs. transplanted heart: [place] heart Associated angina: without angina Qualified Code(s): I25.10 - Atherosclerotic heart disease of [place] coronary artery without angina pectoris (3) Hypertension: Currently normotensive. May continue on the current medication. Qualifiers: Hypertension type: primary hypertension Qualified Code(s): I10 - Essential (primary) hypertension (4) Implantable loop recorder present: We will explant the device after the pacemaker insertion. Plan Patient to be admitted to hospital following the pacemaker insertion for IV antibiotic. If he remains stable, will be discharged home tomorrow. Attestations Medical Necessity Statement*: Patient requires overnight stay, for IV antibiotic administration Coding Level of Care Code 77842 Diagnoses Recurrent syncope R55 Coronary artery disease involving [place] coronary artery of [place] heart without angina pectoris I25.10 Coronary Disease-Associated Artery/Lesion type: [place] artery [place] vs. transplanted heart: [place] heart Associated angina: without angina Primary hypertension I10 Hypertension type: primary hypertension Implantable loop recorder present Z95.818
--- NOTE | 2023-06-13 07:14 | W.PM.OPSUD ---
Surgery/Procedure H&P Update DATE OF PROCEDURE: June 13, 2023 DATE H&P PERFORMED: 06/13/23 H&P UPDATE INFORMATION: I have reviewed H&P completed within last 30 days, I have examined patient prior to procedure and No changes to prior documentation PREOP DIAGNOSIS: Sinus node dysfunction/ PRIMARY INDICATION FOR PROCEDURE: Recurrent syncope with a prolonged process on the ICM telemetry PLANNED PROCEDURE: Operation Date: 06/13/23 08:30 Proposed Procedures p PPM Gen only dual 47473 Z95.818, I45.5,I25.10(Not Applicable) - Lupe Mueller MD PATIENT REASSESSED PRIOR TO SEDATION, WITH NO CHANGE NOTED: Yes PHYSICAL EXAM: alert, oriented x 3, clear to auscultation bilaterally and regular rate & rhythm AIRWAY EVAL/ANESTHESIA PLAN: normal airway, see other exam findings, ASA II, Monitored Anesthesia, Local Anesthesia, Risks, benefits & alternatives of sedation and/or procedure discussed and Patient agrees to continue as planned
[2023-06-13] MEDS: dextrose 5%-sod chloride 0.45% 1,000 ML 100 ML IV (07:32)
--- NOTE | 2023-06-13 13:48 | PM.OP ---
Operative Report Date of procedure: June 13, 2023 Surgeon: Lupe Mueller MD Procedure: LOCATION: Cardiac colorization lab PREOPERATIVE DIAGNOSES: Recurrent syncope/sinus node dysfunction. POSTOPERATIVE DIAGNOSES: Same. COMPLICATIONS: None. ESTIMATED BLOOD LOSS: None BRIEF HISTORY: Mr. Gregorio is a 47-year-old white male presents with recurrent episodes of syncope/near syncope. He was found to have prolonged pauses on the ICM. For further management of his condition, a permanent pacemaker evaluation was recommended. A dual chamber permanent pacemaker implantation was recommended for AV synchrony and symptom relief The procedure was explained to the patient in detail with the risks and benefits. The risks of bleeding, hematoma, vascular injury, infection, pneumothorax, myocardial perforation and other concomitant complications were explained in detail, which the patient understood well and consented to proceed. PROCEDURE DESCRIPTION: The patient was brought to the Cardiac Catheterization Lab. The left and the right side of the neck and the subclavian area were cleaned and draped in a sterile fashion. 1% Xylocaine was used as the local anesthetic agent. Left subclavian venogram was performed by injecting 20 milliliters of Omnipaque through the left antecubital vein. A left subclavian venous access was obtained using a micropuncture needle system, under venographic guidance. . A two-inch long incision was made 2.0 centimeters below the midclavicular region. By sharp and blunt dissection, a pacemaker pocket was made. A second guidewire was inserted by double barrel technique. Over the first guidewire, a 7-[place] venous sheath with dilator was advanced. The venous dilator and the guidewire were taken out. A screw-in ventricular lead was advanced through the venous sheath and was positioned towards the right ventricle. Under fluoroscopic guidance, the ventricular lead was positioned toward the right ventricular apex. Good pacing and sensing thresholds were obtained. The lead was secured to the endocardium by advancing the helix. The stability of the lead was tested by gentle twisting movements and also by asking the patient to take some deep breaths and cough. The venous sheath was peeled off, at this time. The lead was secured to the pectoralis fascia, by suturing with 1-0 Surgilon. Over the second guidewire, another 7-[place] venous sheath with dilator was advanced. The dilator and the guidewire were taken out. Under fluoroscopic guidance, an atrial lead (Medtronic), was advanced and positioned toward the right atrium. The lead was positioned in the right atrial appendage. Good pacing and sensing thresholds were obtained. The lead was secured to the endocardium by advancing the helix. Stability of the lead was tested by gentle twisting movements and also by asking the patient to take some deep breaths and cough. The venous sheath was peeled off, at this time. The lead was secured to the pectoralis fascia by suturing with 0-Surgilon. The pacemaker pocket was copiously irrigated with vancomycin solution. Complete hemostasis was achieved. Sponge counts were confirmed. The leads were attached to a Medtronic generator. The leads were positioned behind the generator and the generator was attached to the pectoralis fascia by suturing with 0-Surgilon. The pocket was closed in layers. Skin was approximated using 4-0 Vicryl. IMPLANTED DEVICES: ATRIAL LEAD: Model number: 5076/52 Serial number: [id number] Make: Medtronic VENTRICULAR LEAD: Model number: 5076/58 Serial number: [id number] Make: Medtronic GENERATOR Brand: Meme XT DR MANSFIELD Sammytony Model number: [id number] Serial number: [id number] Make: Medtronic IMPLANTATION DATA: With the pacing system analyzer, the R wave sensing was 12.7 millivolts with a lead impedance of 893 and a pacing threshold was 0.4 volts at 0.4 milliseconds. In the atrium, the sensing was 4 point millivolts with a lead impedance of 494 ohms and a pacing threshold was 0.4 volts at 0.4 milliseconds. Through the device, the R-wave sensing was 12.8 millivolts with a lead impedance of 817 and a pacing threshold was 0.5 volts at 0.4 milliseconds. The atrial sensing was 3.1 millivolts with a lead impedance of 513 ohms and a pacing threshold of 0.75 volts at 0.4 milliseconds. The pacemaker was set for AAIR/DDDR mode with upper rate of 130 and a lower rate of 60. A pressure dressing was applied over the pacemaker site. The patient was transferred to the Medical Floor in stable condition. A chest x-ray was ordered to confirm the lead position and also to rule out any pneumothorax.
--- NOTE | 2023-06-13 13:56 | P.OP_ITS ---
Operative Report Date of procedure: June 13, 2023 Surgeon: Lupe Mueller MD Procedure: LOCATION: Cardiac Catheterization Laboratory REFERRING PROVIDER: Dr. Eduardo Lee PREOPERATIVE DIAGNOSIS: Recurrent syncope. POSTOPERATIVE DIAGNOSIS: same ESTIMATED BLOOD LOSS: None COMPLICATIONS: None. BRIEF HISTORY: This is a 47-year-old white [male] with a history of recurrent [syncope], had an ICM placement for the diagnosis of recurrent syncope. This patient was found to have prolonged pauses on the monitor associated syncope/near syncope. So for further management of his condition, he underwent a permanent pacemaker medication today. So it was decided to explant the device after the pacemaker insertion PROCEDURE: The procedure was explained to the patient in detail with the risks and benefits. The patient understood this well and consented to proceed. The patient was brought to the Cardiac B2B Sales Consultant. The left side of the neck and the precordial region were cleaned and draped in a sterile fashion. 1% Xylocaine was used as local anesthetic agent. A 1/3 inch long incision was made at the previous implantation scar. By sharp and blunt dissection, the land leasing information clerk pocket was accessed. The device was delivered from the pocket. Complete hemostasis was achieved. The skin was approximated with Steri-Strips EXPLANTED DEVICE: Reveal LINQ II Model number: [id number] Serial number: [id number] Make: [place] Pressure dressing was applied over the insertion site. The patient was transferred to the medical floor in stable condition.
[2023-06-13] MEDS: oxyCODONE-APAP 5-325 mg Tablet 1 TAB PO ×3 (14:56→23:10)
[2023-06-13] MEDS: ceFAZolin 2,000 MG in sodium chloride 0.9% (plus) 50 ML 100 MG IV ×2 (14:57→23:11)
--- NOTE | 2023-06-13 16:24 | XRR_ITS ---
PROCEDURE INFORMATION: Exam: XR Chest Exam date and time: 06/13/2023 5:35 PM Age: 47 years old Clinical indication: Device placement; Other: Pacemaker; Additional info: Post pace maker, to evaluate the lead position and to rule out pneumothorax TECHNIQUE: Imaging protocol: Radiologic exam of the chest. Views: 1 view. COMPARISON: CR XR chest 1V portable [id number] 02/06/2023 2:00 PM FINDINGS: Tubes, catheters and devices: A left chest wall implantable pacer is present. Lungs: Unremarkable. No consolidation. Pleural spaces: Unremarkable. No pleural effusion. No pneumothorax. Heart/Mediastinum: Unremarkable. No cardiomegaly. Bones/joints: Unremarkable. XR/XR chest 1V portable [id number] IMPRESSION: No acute disease.
[2023-06-14] VITALS: BP 123/78; PULSE 73; RESP 23; TEMP 36.7; O2SAT 96
[2023-06-14 04:00] VITALS: BP 113/87; PULSE 63; RESP 21; TEMP 36.5; O2SAT 96
[2023-06-14 05:29] VITALS: RESP 18
[2023-06-14] MEDS: oxyCODONE-APAP 5-325 mg Tablet 1 TAB PO (05:29)
[2023-06-14] MEDS: lisinopril 5 mg Tablet PO (05:29)
[2023-06-14] MEDS: ceFAZolin 2,000 MG in sodium chloride 0.9% (plus) 50 ML 100 MG IV (05:30)
[2023-06-14 06:24] VITALS: PULSE 96
[2023-06-14 07:52] VITALS: BP 119/77; PULSE 67; TEMP 36.5; O2SAT 97
--- NOTE | 2023-06-14 08:52 | ECG_ITS ---
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 Measurements Intervals [place] Rate: 77 P: 2 WI: 161 QRS: -4 QRSD: 87 T: 31 QT: 376 QTc: 428 Interpretive Statements SINUS RHYTHM Compared to ECG 02/06/2023 13:41:24 Sinus arrhythmia no longer present Electronically Signed On 06-14-2023 10:48:12 BAND CUTTER by Otoniel Rivera M.D. [email or web address]
--- NOTE | 2023-06-14 09:06 | P.PN_ITS ---
Subjective 2 Subjective: The patient has been doing okay with no chest pain or shortness of breath. No fever or chills. Pacemaker interrogation was done today. Good sensing and pacing functions in the leads. Chest x-ray showed no evidence of pneumothorax. Proper positioning of the leads. Medications: Medication Review Details: Current Medications Lisinopril (Lisinopril 5 Mg Tablet) 5 mg PO QAM JONN Last Admin: 06/14/23 05:29 Dose: 5 mg Oxycodone/Acetaminophen (Oxycodone-Apap 5-325 Mg Tablet) 1 tab PO Q4H PRN PRN Reason: MODERATE TO SEVERE PAIN Last Admin: 06/14/23 05:29 Dose: 1 tab Vitals/I&O/Wt Last Vital Signs Temp 97.7 F 06/14/23 07:52 Pulse 67 06/14/23 07:52 Resp 18 06/14/23 05:29 BP 119/77 06/14/23 07:52 Pulse Ox 97 06/14/23 07:52 O2 Del Method Room Air 06/14/23 04:00 06/13/23 06/14/23 06/14/23 22:59 06:59 14:59 Intake Total 1410 / 1410 700 / 2110 Balance 1410 / 1410 700 / 2110 Weight last 48 hrs Weight 195 lb Weight 197 lb Weight 200 lb Physical Exam 2 Narrative: GENERAL: The patient is alert and oriented times three. Not in any acute distress. HEENT: No significant pallor, icterus or lymphadenopathy.Oral cavity: There are no mucous membrane lesions. NECK: Trachea appears to be central. No masses noted. No JVD or thyromegaly appreciated. RESPIRATORY: Chest is symmetrical. No intercostals muscle retraction or any accessory muscle activation. There is no chest wall tenderness. Breath sounds are heard bilaterally. No rales or rhonchi heard. No evidence of any consolidation. The ICM implantation site has no evidence of infection. No hematoma at the pacemaker insertion site BREASTS: Deferred. HEART: The heart sounds are normal. No S3 or S4. No significant murmurs. No pericardial rub ABDOMEN: No vessel pulsations or distention. No tenderness. No organomegaly appreciated. Bowel sounds are normally heard. : Deferred. RECTAL: Deferred. LYMPHATIC: No lymphadenopathy noted in the neck. EXTREMITIES: No edema or cyanosis. No clubbing. MUSCULOSKELETAL: No acute joint deformities or swelling SKIN: There are no significant rashes or ecchymosis NEUROPSYCHIATRIC: The patient is alert and oriented x3. Appears to be in a good mood. No tremors or rigidity noted. Data 06/13/23 06:20 06/13/23 06:20 Other Labs: Laboratory Last Values WBC 6.01 10^3/uL (3.29-11.43) 06/13/23 06:20 RBC 4.59 10^6/uL (3.85-5.65) 06/13/23 06:20 Hgb 14.00 g/dL (11.27-16.99) 06/13/23 06:20 Hct 41.7 % (37-53) 06/13/23 06:20 MCV 90.8 fl (82-101) 06/13/23 06:20 MCH 30.5 pg (27-33) 06/13/23 06:20 MCHC 33.6 g/dL (30-55) 06/13/23 06:20 RDW 13.1 % (12.1-15.1) 06/13/23 06:20 Plt Count 300 10^3/cmm (157-399) 06/13/23 06:20 MPV 9.4 fL (7.4-10.4) 06/13/23 06:20 Neut % (Auto) 48.4 % 06/13/23 06:20 Lymph % (Auto) 40.4 % 06/13/23 06:20 [place] % (Auto) 6.3 % 06/13/23 06:20 Eos % (Auto) 4.0 % 06/13/23 06:20 Baso % (Auto) 0.7 % 06/13/23 06:20 Neut # (Auto) 2.91 10^3/uL (1.8-7.7) 06/13/23 06:20 Lymph # (Auto) 2.4 10^3/uL (0.8-4.8) 06/13/23 06:20 [place] # (Auto) 0.4 10^3/uL (0.2-0.9) 06/13/23 06:20 Eos # (Auto) 0.2 10^3/uL (0.0-0.8) 06/13/23 06:20 Baso # (Auto) 0.0 10^3/uL (0.0-0.1) 06/13/23 06:20 Nucleated RBC % (auto) 0 % 06/13/23 06:20 Nucleated RBCs # 0.0 /100WBC 06/13/23 06:20 Sodium 140 mmol/L (136-145) 06/13/23 06:20 Potassium 4.3 mmol/L (3.5-5.1) 06/13/23 06:20 Chloride 106 mmol/L (98-107) 06/13/23 06:20 Carbon Dioxide 24 mmol/L (22-29) 06/13/23 06:20 Anion Gap 14.3 (5-19) 06/13/23 06:20 BUN 9 mg/dL (6-20) 06/13/23 06:20 Creatinine 0.7 mg/dL (0.7-1.2) 06/13/23 06:20 GFR Calculation 120.9 mL/min (90-130) 06/13/23 06:20 Glucose 113 mg/dL (65-115) 06/13/23 06:20 Calculated Osmolality 289 mOsm/kg (285-295) 06/13/23 06:20 Calcium 8.5 mg/dL (8.5-10.5) 06/13/23 06:20 A&P Assessment and plan (1) Recurrent syncope: Patient underwent permanent pacer implantation yesterday. He had an uncomplicated postprocedure course. Currently remaining stable. (2) Coronary artery disease: Patient was found to have mild CAD by angiogram in 2018. He is totally asymptomatic at this point. No evidence of any progression of disease. Qualifiers: Associated angina: without angina Coronary Disease-Associated Artery/Lesion type: [place] artery [place] vs. transplanted heart: [place] heart Qualified Code(s): I25.10 - Atherosclerotic heart disease of [place] coronary artery without angina pectoris (3) Hypertension: Currently normotensive. May continue on the current medication. Qualifiers: Hypertension type: primary hypertension Qualified Code(s): I10 - Essential (primary) hypertension (4) Implantable loop recorder present: The device was explanted. Plan Patient is being discharged home today. Advised to continue on the above medications. He also is advised to take [Keflex 500] milligrams by mouth every six hours for five days; multivitamin one tablet by mouth daily for two weeks; Hydrocodone/APAP 5/325 by mouth every six hours when necessary. Postpacemaker care instructions were given. Patient will be coming back to the office next week for a wound check and pacemaker interrogation. In the event of the patient developing any unusual pain, swelling or bleeding at the pacemaker site, is instructed to call us or come back to the hospital. Patient will be taking the antibiotics and the multivitamins as instructed. May continue taking the other medications as below. Attestations 2 Medical Necessity Statement*: Discharge home today Coding Level of Care Code 46204 Diagnoses Recurrent syncope R55 Coronary artery disease involving [place] coronary artery of [place] heart without angina pectoris I25.10 Associated angina: without angina Coronary Disease-Associated Artery/Lesion type: [place] artery [place] vs. transplanted heart: [place] heart Primary hypertension I10 Hypertension type: primary hypertension Implantable loop recorder present Z95.818
[2023-06-14 09:21] VITALS: BP 119/77; PULSE 67; TEMP 36.5; O2SAT 97
--- NOTE | 2023-06-14 09:56 | PC.NURSE ---
discharge instructions given and explained.pt verb understanding of instructions.discharged via w/c to exit at 1055.son to drive pt home
== END 2023-06-14 09:58 | disposition home or self-care (01) ==
LOC: CCL 05:47 → CSU 14:46
PROVIDERS: PCP Internal Medicine; Visit Provider Internal Medicine Cardiovascular Disease
DX: R55 Syncope and collapse (principal); I45.5 Other specified heart block; I25.10 Atherosclerotic heart disease of native coronary artery without angina pectoris; I10 Essential (primary) hypertension; Z95.818 Presence of other cardiac implants and grafts; Z87.891 Personal history of nicotine dependence
CPT/HCPCS: 33208; 36415; 71045; 80048; 85025; 93005; 96361; 96365; 96367; 97165; 99152; 99153; A4216; C1769; C1779; C1786; C1894; C1898; J0690; J2250; J2405; J3010; J3370; J7030; J7050; J7799; Q9967

== ENCOUNTER → 2023-12-19 15:16 | Outpatient (BNVA) | payer MEDICAID, SELFPAY | PROVIDERS: PCP Internal Medicine; Referring Provider Nurse Practitioner Family; Visit Provider Orthopaedic Surgery | DX: M54.9 Dorsalgia, unspecified (principal); G89.29 Other chronic pain; M54.10 Radiculopathy, site unspecified; M54.42 Lumbago with sciatica, left side | CPT/HCPCS: 72110 ==

== ENCOUNTER 2023-12-30 08:48 | Outpatient (CLI) | payer MEDICAID, SELFPAY ==
--- NOTE | 2023-12-30 08:56 | XR_ITS ---
WS: [email or web address] XR lumbar spine 2-3V* [id number] REASON FOR EXAM: M54.9 - Dorsalgia, unspecified FINDINGS: Relatively normal spinal curvatures. Chronic appearing superior endplate compression deformities of T12 and L1. No acute compression defor mity identified. Moderate osteophytosis at L1 and L3. No other significant focal vertebral body abnor mality noted. Mild narrowing of the intervertebral disc space at L5-S1. Remaining disc spaces are intact and well p reserved. No significant spondylosis listhesis. XR/XR lumbar spine 2-3V* [id number] IMPRESSION: Old compression deformities with minimal degenerative spondylosis.
--- NOTE | 2023-12-30 08:56 | XR_ITS ---
WS: [email or web address] XR thoracic spine 3V* [id number] REASON FOR EXAM: M54.9 - Dorsalgia, unspecified FINDINGS: Mild levoscoliosis of the lower thoracic spine. Mild wedge-shaped compression deformity of T12, otherwise no significant vertebral body abnormality. Minimal narrowing of the intervertebral disc spaces in the lower thoracic spine with mild osteophytos is. XR/XR thoracic spine 3V* [id number] IMPRESSION: Mild wedge-shaped compression deformity of T12 which appears chronic. Mild degenerative spondylosis and levoscoliosis.
== END 2023-12-30 08:49 | disposition home or self-care (01) ==
LOC: RAD 08:52
PROVIDERS: PCP Internal Medicine; Visit Provider Orthopaedic Surgery
DX: S32.010A Wedge compression fracture of first lumbar vertebra, initial encounter for closed fracture (principal); S22.080A Wedge compression fracture of T11-T12 vertebra, initial encounter for closed fracture; X58.XXXA Exposure to other specified factors, initial encounter; M25.78 Osteophyte, vertebrae
CPT/HCPCS: 72072; 72100